=== PATIENT | male | born 1965 | race Caucasian/White ===

== ENCOUNTER 2022-09-12 17:56 | Inpatient (IN) ==
--- NOTE | 2022-09-12 18:06 | DR.ABDMALE ---
HPI <Naveed Costello - Last Filed: 09/12/22 18:31> Time seen Time Seen by Provider: 09/12/22 18:04 Complaint Chief Complaint Doctors Comments: Abdominal pain, constipation 2 days COVID-19 Coronavirus risk:travel/contact w/high risk person: No Has patient experienced Coronavirus symptoms: No Reviewed Nurses Notes Review: Yes Mode of arrival Mode of Arrival: Ambulatory Timing Came on: Gradually Duration Duration: Intermittent Severity Severity: Moderate <Kerry Johnson - Last Filed: 09/12/22 21:38> HPI comment HPI Comment: 57 y/o with hx perforated pud for which he's had surgery comes in with abd pain and constipation x almost a week; diffuse and worsening; poor appetite with decreased po intake; sob with exertion; no cough, fever, chills, n/v/d ROS <Naveed Costello - Last Filed: 09/12/22 18:31> Review of Systems Constitutional: No Symptoms Reported Eyes: No Symptoms Reported ENTM: No Symptoms Reported Respiratoy: No Symptoms Reported Cardiovascular: No Symptoms Reported Gastrointestinal/Abdominal: See HPI, Abdominal Pain and Constipation Genitourinary: No Symptoms Reported Neurological: No Symptoms Reported Musculoskeletal: No Symptoms Reported Integumentary: No Symptoms Reported Hematologic/Lymphatic: No Symptoms Reported Endocrine: No Symptoms Reported Psychiatric: No Symptoms Reported All Other Systems: Reviewed and Negative <Kerry Johnson - Last Filed: 09/12/22 21:38> Review of Systems Respiratoy: See HPI and Short of Breath PE <Naveed Costello - Last Filed: 09/12/22 18:31> Vital Signs Vital Signs: Temp Pulse Resp BP Pulse Ox 09/12/22 21:15 108 H 16 100 09/12/22 21:00 109 H 21 100 09/12/22 20:45 115 H 23 09/12/22 20:30 109 H 19 100 09/12/22 20:15 109 H 20 98 09/12/22 20:11 109 H 09/12/22 19:45 113 H 21 99 09/12/22 19:45 131/92 09/12/22 19:30 110 H 19 99 09/12/22 19:30 131/95 09/12/22 19:29 110 H 20 99 09/12/22 19:15 112 H 21 99 09/12/22 19:15 125/88 09/12/22 19:00 111 H 20 09/12/22 19:00 125/90 09/12/22 18:46 111 H 22 09/12/22 18:46 128/92 09/12/22 18:45 110 H 21 09/12/22 18:30 111 H 25 H 09/12/22 18:30 134/87 09/12/22 18:15 115 H 27 H 09/12/22 18:13 113 H 26 H 90 L 09/12/22 18:07 98.9 F 125 H 18 132/95 98 General Limitations: No Limitations General Appearance: Alert and In No Apparent Distress Head Head Exam: Normal Inspection Eyes Eye exam: Normal Appearance ENT ENT Exam: Normal Exam Neck Neck Exam: Normal Inspection Chest Chest Inspection: Normal Inspection Respiratory Respiratory Exam: Normal Lung Sounds Bilat Cardiovascular Cardiovascular Exam: Regular Rate and Normal Rhythm Abdominal Exam Abdominal Exam: Normal Inspection and Normal Bowel Sounds Rectal Rectal Exam: Deferred Back Back Exam: Normal Inspection Extremeties Extremities Exam: Normal Inspection Exam: Male: Deferred Neurologic Neurological Exam: Alert and Oriented X3 Psychiatric Psychiatric Exam: Normal Affect and Normal Mood Skin Skin Exam: Warm, Dry, Intact and Normal Color <Kerry Johnson - Last Filed: 09/12/22 21:38> Vital Signs Vital Signs: Temp Pulse Resp BP Pulse Ox 09/12/22 21:15 108 H 16 100 09/12/22 21:00 109 H 21 100 09/12/22 20:45 115 H 23 09/12/22 20:30 109 H 19 100 09/12/22 20:15 109 H 20 98 09/12/22 20:11 109 H 09/12/22 19:45 113 H 21 99 09/12/22 19:45 131/92 09/12/22 19:30 110 H 19 99 09/12/22 19:30 131/95 09/12/22 19:29 110 H 20 99 09/12/22 19:15 112 H 21 99 09/12/22 19:15 125/88 09/12/22 19:00 111 H 20 09/12/22 19:00 125/90 09/12/22 18:46 111 H 22 09/12/22 18:46 128/92 09/12/22 18:45 110 H 21 09/12/22 18:30 111 H 25 H 03/28/23 18:30 134/87 09/12/22 18:15 115 H 27 H 09/12/22 18:13 113 H 26 H 90 L 09/12/22 18:07 98.9 F 125 H 18 132/95 98 General General Appearance: In No Apparent Distress (lying very still with eyes closed, speaks when spoken to) Abdominal Exam Abdominal Tenderness: Diffuse and Severe Skin Skin Exam: Intact and Mottled (rt side/flank) <Kerry Johnson - Last Filed: 09/12/22 21:38> Reevaluation 1st: Unchanged (pale, lethargic, very tender abd) 2nd: Unchanged Consultation Call Returned: 21:07 (Dr Chavarria here to place central line; advised of ct results; accepts admission.) Critical Care Notes Total Time (mins): 30 Critical Diagnosis: pneumoperitoneum, ascites, dehydration, arf, sepsis, hyponatremia, rt pleural effusion Critical Interventions: ivf, abx, central line, surgical consult discussion of dx and need for admission/surgical exploration with radiologist, pt and surgeon ROR <Naveed Costello - Last Filed: 09/12/22 18:31> Labs Reviewed Result Diagrams: 09/12/22 18:20 09/12/22 18:20 Laboratory: WBC 17.2 X10^3/uL (3.6-10.0) H 09/12/22 18:20 RBC 6.29 X10^6/uL (4.7-6.0) H 09/12/22 18:20 Hgb 20.4 g/dL (13.5-18.0) H* 09/12/22 18:20 Hct 61.2 % (42.0-54.0) H* 09/12/22 18:20 MCV 97.2 fL (80.0-100.0) 09/12/22 18:20 MCH 32.4 pg (27.0-34.0) 09/12/22 18:20 MCHC 33.3 g/dL (33.0-35.0) 09/12/22 18:20 RDW 13.8 % (11.6-16.5) 09/12/22 18:20 Plt Count 248 X10^3/uL (150.0-450.0) 09/12/22 18:20 MPV 8.5 fL (7.4-11.0) 09/12/22 18:20 Neut % (Auto) 89.2 % (42.0-75.0) H 09/12/22 18:20 Lymph % (Auto) 6.0 % (21.0-51.0) L 09/12/22 18:20 [place] % (Auto) 4.6 % (0.0-13.0) 09/12/22 18:20 Eos % (Auto) 0.0 % (0.9-2.9) L 09/12/22 18:20 Baso % (Auto) 0.2 % (0.2-1.0) 09/12/22 18:20 Neut # (Auto) 15.3 x10^3/uL (2.2-4.8) H 09/12/22 18:20 Lymph # (Auto) 1.0 X10^3/uL (1.3-2.9) L 09/12/22 18:20 [place] # (Auto) 0.8 x10^3/uL (0.3-0.8) 09/12/22 18:20 Eos # (Auto) 0.0 x10^3/uL (0.0-0.2) 09/12/22 18:20 Baso # (Auto) 0.0 X10^3/uL (0.0-0.1) 09/12/22 18:20 Absolute Nucleated RBC 0.1 /100WBC 09/12/22 18:20 Sodium 128 mmol/L (136-145) L 09/12/22 18:20 Corrected Sodium TNP 09/12/22 18:20 Potassium 5.1 mmol/L (3.5-5.1) 09/12/22 18:20 Chloride 93 mmol/L (98-107) L 09/12/22 18:20 Carbon Dioxide 17.2 mmol/L (21-32) L 09/12/22 18:20 BUN 47 mg/dL (7-18) H 09/12/22 18:20 Creatinine 4.19 mg/dL (0.70-1.30) H 09/12/22 18:20 Est GFR (MDRD) Af Amer 19 (>60) L 09/12/22 18:20 Est GFR (MDRD) Non-Af 16 (>60) L 09/12/22 18:20 Glucose 110 mg/dL (65-99) H 09/12/22 18:20 Lactic Acid 8.8 mmol/L (0.4-2.0) H 09/12/22 18:20 Calcium 9.8 mg/dL (8.5-10.1) 09/12/22 18:20 Corrected Calcium TNP 09/12/22 18:20 Total Bilirubin 0.90 mg/dL (0.2-1.0) 09/12/22 18:20 AST 92 Units/L (15-37) H 09/12/22 18:20 ALT 146 Units/L (12-78) H 09/12/22 18:20 Alkaline Phosphatase 91 Units/L (46-116) 09/12/22 18:20 Total Protein 8.1 g/dL (6.4-8.2) 09/12/22 18:20 Albumin 3.8 g/dL (3.4-5.0) 09/12/22 18:20 Globulin 4.3 g/dL (2.5-4.5) 09/12/22 18:20 Albumin/Globulin Ratio 0.9 Ratio (1.1-2.1) L 09/12/22 18:20 Lipase 95 Units/L (73-393) 09/12/22 18:20 <Kerry Johnson - Last Filed: 09/12/22 21:38> Labs Reviewed Laboratory Results Reviewed?: Yes Laboratory: WBC 17.2 X10^3/uL (3.6-10.0) H 09/12/22 18:20 RBC 6.29 X10^6/uL (4.7-6.0) H 09/12/22 18:20 Hgb 20.4 g/dL (13.5-18.0) H* 09/12/22 18:20 Hct 61.2 % (42.0-54.0) H* 09/12/22 18:20 MCV 97.2 fL (80.0-100.0) 09/12/22 18:20 MCH 32.4 pg (27.0-34.0) 09/12/22 18:20 MCHC 33.3 g/dL (33.0-35.0) 09/12/22 18:20 RDW 13.8 % (11.6-16.5) 09/12/22 18:20 Plt Count 248 X10^3/uL (150.0-450.0) 09/12/22 18:20 MPV 8.5 fL (7.4-11.0) 09/12/22 18:20 Neut % (Auto) 89.2 % (42.0-75.0) H 09/12/22 18:20 Lymph % (Auto) 6.0 % (21.0-51.0) L 09/12/22 18:20 [place] % (Auto) 4.6 % (0.0-13.0) 09/12/22 18:20 Eos % (Auto) 0.0 % (0.9-2.9) L 09/12/22 18:20 Baso % (Auto) 0.2 % (0.2-1.0) 09/12/22 18:20 Neut # (Auto) 15.3 x10^3/uL (2.2-4.8) H 09/12/22 18:20 Lymph # (Auto) 1.0 X10^3/uL (1.3-2.9) L 09/12/22 18:20 [place] # (Auto) 0.8 x10^3/uL (0.3-0.8) 09/12/22 18:20 Eos # (Auto) 0.0 x10^3/uL (0.0-0.2) 09/12/22 18:20 Baso # (Auto) 0.0 X10^3/uL (0.0-0.1) 09/12/22 18:20 Absolute Nucleated RBC 0.1 /100WBC 09/12/22 18:20 Sodium 128 mmol/L (136-145) L 09/12/22 18:20 Corrected Sodium TNP 09/12/22 18:20 Potassium 5.1 mmol/L (3.5-5.1) 09/12/22 18:20 Chloride 93 mmol/L (98-107) L 09/12/22 18:20 Carbon Dioxide 17.2 mmol/L (21-32) L 09/12/22 18:20 BUN 47 mg/dL (7-18) H 09/12/22 18:20 Creatinine 4.19 mg/dL (0.70-1.30) H 09/12/22 18:20 Est GFR (MDRD) Af Amer 19 (>60) L 09/12/22 18:20 Est GFR (MDRD) Non-Af 16 (>60) L 09/12/22 18:20 Glucose 110 mg/dL (65-99) H 09/12/22 18:20 Lactic Acid 8.8 mmol/L (0.4-2.0) H 09/12/22 18:20 Calcium 9.8 mg/dL (8.5-10.1) 09/12/22 18:20 Corrected Calcium TNP 09/12/22 18:20 Total Bilirubin 0.90 mg/dL (0.2-1.0) 09/12/22 18:20 AST 92 Units/L (15-37) H 09/12/22 18:20 ALT 146 Units/L (12-78) H 09/12/22 18:20 Alkaline Phosphatase 91 Units/L (46-116) 09/12/22 18:20 Total Protein 8.1 g/dL (6.4-8.2) 09/12/22 18:20 Albumin 3.8 g/dL (3.4-5.0) 09/12/22 18:20 Globulin 4.3 g/dL (2.5-4.5) 09/12/22 18:20 Albumin/Globulin Ratio 0.9 Ratio (1.1-2.1) L 09/12/22 18:20 Lipase 95 Units/L (73-393) 09/12/22 18:20 Other Results Comments: left arm/upper half of forearm became swollen, tight presumably from antecubital iv; forearm dusky, cool to touch with 2+ ulnar/radial pulse; iv removed XRAY XRAY Interpreted by: Radiologist X-ray Results: kub: Intra-abdominal free air, best seen on subsequent CT. See separately dictated CT abdomen pelvis from the same day further describing the findings. ct abd/pelvis w/o: Significant pneumoperitoneum and ascites noted throughout the abdomen. This is concerning for a perforated viscus. Correlate clinically to exclude a perforated ulcer of possibly the duodenum, as the source for the pe rforation. A surgical consult is highly recommended. Distention of the stomach and multiple small bowel loops concerning for either a bowel obstruction versus a reactive ileus. However, the right hemicolon is not distended but rather there is mild gaseous distention of the transverse colon. Dr. Johnson was notified of the above findings at thetime of the interpretation of the exam at 8:52 p.m. on 09/12/2022. Small right pleural effusion. 2.2 mm nonobstructing left lower pole renal calculus. Opioid <Naveed Costello - Last Filed: 09/12/22 18:31> Opioid Risk Tool Total: 0 Total Score Risk Category: Low Risk Copyright: [facility] predicting aberrant behaviors <Kerry Johnson - Last Filed: 09/12/22 21:38> Opioid Risk Tool Total: 0 Total Score Risk Category: Low Risk Discharge Plan Diagnosis Discharge Problem: Pneumoperitoneum, Acute dehydration, Acute hyponatremia, Pleural effusion on right Acute renal failure (ARF) Qualifiers: Acute renal failure type: unspecified Qualified Code(s): N17.9 - Acute kidney failure, unspecified Sepsis Qualifiers: Sepsis type: sepsis due to unspecified organism Sepsis acute organ dysfunction status: with acute organ dysfunction Severe sepsis acute organ dysfunction type: acute renal failure Acute renal failure type: unspecified Severe sepsis shock status: without septic shock Qualified Code(s): A41.9 - Sepsis, unspecified organism Discharge Plan Patient Disposition: 09 ADMITTED INPATIENT Condition: Stable Prescriptions: No Action [facility] Concerns: Post Hospitalization: new medications and changes needed to prevent readmission or further decline. Pt educated and given instructions on all concerns. Plan of Treatment: Continue with present treatment and follow up plan. Pt is to keep follow up appointment as instructed and take medications as ordered. Follow ups/Referrals Follow ups/Referrals: [facility],None [Primary Care Provider] - 3 days
[2022-09-12 18:32] LABS: MEAN CORPUSCULAR VOLUME 97.2 fL (80.0-100.0)
[2022-09-12 18:36] LABS: BASOPHILS % (AUTO) 0.2 % (0.2-1.0); MEAN CORPUSCULAR HEMOGLOBIN 32.4 pg (27.0-34.0); MEAN CORPUSCULAR HGB CONC 33.3 g/dL (33.0-35.0); MEAN PLATELET VOLUME 8.5 fL (7.4-11.0); MONOCYTES # (AUTO) 0.8 x10^3/uL (0.3-0.8); MONOCYTES % (AUTO) 4.6 % (0.0-13.0); NEUTROPHILS # (AUTO) 15.3 x10^3/uL (2.2-4.8); NEUTROPHILS % (AUTO) 89.2 % (42.0-75.0); RED BLOOD COUNT 6.29 X10^6/uL (4.7-6.0); RED CELL DISTRIBUTION WIDTH 13.8 % (11.6-16.5); WHITE BLOOD COUNT 17.2 X10^3/uL (3.6-10.0)
[2022-09-12 18:38] LABS: HEMATOCRIT 61.2 % (42.0-54.0); HEMOGLOBIN 20.4 g/dL (13.5-18.0)
[2022-09-12 19:00] LABS: ALANINE AMINOTRANSFERASE 146 Units/L (12-78); ALBUMIN 3.8 g/dL (3.4-5.0); ALKALINE PHOSPHATASE 91 Units/L (46-116); ASPARTATE AMINO TRANSFERASE 92 Units/L (15-37); BLOOD UREA NITROGEN 47 mg/dL (7-18); CALCIUM 9.8 mg/dL (8.5-10.1); CARBON DIOXIDE 17.2 mmol/L (21-32); CHLORIDE 93 mmol/L (98-107); CREATININE 4.19 mg/dL (0.70-1.30); SODIUM 128 mmol/L (136-145); TOTAL PROTEIN 8.1 g/dL (6.4-8.2); eGFR NON BLACK RACES 16 (>60)
[2022-09-12 19:03] LABS: LACTIC ACID 8.8 mmol/L (0.4-2.0)
[2022-09-12] MEDS ORDERED: NS 1,000 ML IV 1,000 ML ONE ×3 (19:08→22:20)
[2022-09-12] MEDS ORDERED: NS 1,000 ML IV 1,000 ML IV ONE ×3 (19:11→21:22)
--- NOTE | 2022-09-12 19:27 | EKG ---
Test Reason : Weakness Blood Pressure : */* mmHG Vent. Rate : 112 BPM Atrial Rate : 112 BPM P-R Int : 134 ms QRS Dur : 88 ms QT Int : 300 ms P-R-T Axes : 83 85 76 degrees QTc Int : 409 ms Sinus tachycardia Otherwise normal ECG No previous ECGs available Confirmed by Salazar Cooper ([id number]) on 09/13/2022 10:34:53 AM Referred By: Confirmed By: Salazar Cooper
[2022-09-12] MEDS ORDERED: ZOSYN VIAL 3.375 GRAMS 3.375 G in NS 100 ML IV 100 ML IV ONE (20:16)
--- NOTE | 2022-09-12 20:35 | RAD ---
Abdominal radiograph single viewIndication: 1 week of progressively worsening generalized abdominal pain.COMPARISONNo recent prior. CT from the same day reviewedFINDINGSFree air seen on the concurrent CT from later the same day is difficult to visualized radiographically, with mild gas over the upper abdomen noted. Dilatation of a loop of colon in the right abdomen suspected, without high-grade obstruction identified.IMPRESSIONIntra-abdominal free air, best seen on subsequent CT. See separately dictated CT abdomen pelvis from the same day further describing the findings.Electronically signed by: RYLEE FAIRBANKS (Sep 12, 2022 20:33:49)
--- NOTE | 2022-09-12 21:01 | CT ---
HISTORYC/O 1 WEEK OF PROGRESSIVELY WORSENING GENERALIZED ABDOMINAL PAIN DESCRIBED CONSTANT. PT ALSO C/O CONSTIPATION WITH LAST SMALL BM YESTERDAY MORNINGSTUDYABDOMEN/PELVIS W/O CONCOMPARISONNone.TECHNIQUESerial axial images were obtained from the lung bases to the pubic symphysis without the administration of intravenous contrast. Soft tissue, lung windows and bone window images were interpreted. Dose reduction techniques were utilized.FINDINGSThe heart is not enlarged. The lung bases reveals a small right pleural effusion which is posteriorly layering.There is a large amount of free intraperitoneal air scattered throughout the abdomen. This is predominately seen in the perihepatic space and subjacent to the hemidiaphragms. There is also significant perihepatic ascites and fluid tracking within the paracolic gutters. The liver is normal in size and reveals no focal lesions. There is no intrahepatic biliary ductal dilatation or obvious common bile duct dilatation. The gallbladder is unremarkable. The gallbladder reveals no radiopaque gallstones. The spleen is unremarkable, revealing no focal lesions. The pancreas and adrenal glands are unremarkable.The aorta and inferior vena cava are unremarkable. No significant para-aortic or retroperitoneal lymphadenopathy is identified.The kidneys reveal a 2.2 mm left lower pole nonobstructing renal calculus. There is no hydronephrosis. There is no obstructive uropathy.Examination of the bowel, greater omentum and mesentery reveals diverticular distention of the stomach which is fluid-filled and dilated. Free intraperitoneal air is scattered within the ventral abdominal cavity. Ascites is seen within the abdomen and filling the pelvis. Some of the small bowel loops are also fluid-filled and distended. There is significant edema throughout the mesenteric and omental fat. The appendix is unremarkable with no evidence for acute appendicitis. Examination of the pelvis reveals no pathologic masses. The urinary bladder is unremarkable. There are pelvic phleboliths.IMPRESSIONSignificant pneumoperitoneum and ascites noted throughout the abdomen. This is concerning for a perforated viscus. Correlate clinically to exclude a perforated ulcer of possibly the duodenum, as the source for the perforation. A surgical consult is highly recommended.Distention of the stomach and multiple small bowel loops concerning for either a bowel obstruction versus a reactive ileus. However, the right hemicolon is not distended but rather there is mild gaseous distention of the transverse colon. Dr. Johnson was notified of the above findings at the time of the interpretation of the exam at 8:52 p.m. on 09/12/2022.Small right pleural effusion.2.2 mm nonobstructing left lower pole renal calculus.Electronically signed by: India Gill (Sep 12, 2022 21:00:07)
[2022-09-12] MEDS ORDERED: ZOSYN VIAL 3.375 GRAMS IV ONE (21:07)
[2022-09-12] MEDS ORDERED: NS 100 ML IV 100 ML ONE (21:07)
[2022-09-12] MEDS ORDERED: ZOFRAN INJ 4 MG VIAL IVP PRN (21:33)
[2022-09-12] MEDS ORDERED: MORPHINE SULFATE INJ 2 MG INJ IVP PRN (21:37)
[2022-09-12 21:52] LABS: BILIRUBIN,URINE NEGATIVE (NEGATIVE); BLOOD/HEMOGLOBIN,URINE 4+ (NEGATIVE); GLUCOSE, URINE NEGATIVE (NEGATIVE); KETONES,URINE 1+ (NEGATIVE); LEUKOCYTE ESTERASE ,URINE 1+ (NEGATIVE); NITRITES,URINE NEGATIVE (NEGATIVE); PROTEIN,URINE 3+ (NEGATIVE); UROBILINOGEN,URINE 1+ (NORMAL)
[2022-09-12 22:00] LABS: APPEARANCE,URINE SLIGHTLY HAZY (CLEAR); COLOR,URINE YELLOW (YELLOW)
[2022-09-12] MEDS ORDERED: CONSULT PHARMACY - ANTIBIOTIC XX SCH (22:00)
[2022-09-12 22:01] LABS: BACTERIA,URINE 1+ /HPF (NEGATIVE); RBC,URINE 20-30 /HPF (0-3); SPERM,URINE FEW /HPF (NEGATIVE); SQUAMOUS EPITHELIAL CELL,UR RARE /HPF (NEGATIVE)
[2022-09-12] MEDS ORDERED: ZOSYN VIAL 2.25 GRAMS 2.25 G in NS 100 ML IV 100 ML IV SCH (22:01)
--- NOTE | 2022-09-12 22:16 | RAD ---
HISTORYCENTRAL LINE PLACEMENTSTUDYCHEST, 1 VIEWCOMPARISONNone.TECHNIQUEA single frontal view of the chest was obtained.FINDINGSThere is a left central line with its tip overlying the superior vena cava. There are multiple EKG leads and wires seen overlying the patient. The heart is normal in size. There is no focal infiltrate. There is no effusion. There is no pneumothorax. The osseous structures are intact.There is extensive free intraperitoneal air seen subjacent to the right hemidiaphragm.IMPRESSIONNo focal infiltrate or effusion.Left central line in situ.Pneumoperitoneum.Electronically signed by: India Gill (Sep 12, 2022 22:15:20)
[2022-09-12] MEDS: ZOSYN VIAL 2.25 GRAMS 2.25 G in NS 100 ML IV 100 ML IV SCH (22:17)
[2022-09-12] MEDS ORDERED: LR 1,000 ML IV 1,000 ML IV ONE (22:43)
[2022-09-12] MEDS: DILAUDID INJ IVP PRN (23:02)
[2022-09-12] MEDS: LR 1,000 ML IV 1,000 ML IV SCH (23:54)
--- NOTE | 2022-09-13 00:01 | DR.H&P ---
H&P History & Physical for Day of: H&P Date: 09/12/22 Chief Complaint Chief Complaint: 3 day history of abdominal pain in this incarcerated patient. Allergies Allergies Allergy/AdvReac Type Severity Reaction Status Date / Time No Known Allergies Allergy Verified 09/12/22 18:12 History of Present Illness History of Present Illness: 57 yo male , currently incarcerated with 3 day history of acute abdominal pain. History of surgery over 5 years ago for perforated bowel but no details of the exact location known by the patient. Patient markedly dehydrated . CT shows free air and possible perforated duodenal ulcer. Past Surgical History Surgical History: Abdominal Surgery (see HPI) and Ortho Surgery Social History Does patient currently use any type of tobacco product: No Have you used tobacco products in the last 12 months: No Type of Tobacco Use: None Does any household member use tobacco: No Alcohol Use: None Medications Home Medications: No Known Allergies Allergy (Verified 09/12/22 18:12) CONTINUE taking the following medications NK 09/12/22 [History] Labs Result Diagrams: 09/12/22 18:20 09/12/22 18:20 Labs: Laboratory WBC 17.2 X10^3/uL (3.6-10.0) H 09/12/22 18:20 RBC 6.29 X10^6/uL (4.7-6.0) H 09/12/22 18:20 Hgb 20.4 g/dL (13.5-18.0) H* 09/12/22 18:20 Hct 61.2 % (42.0-54.0) H* 09/12/22 18:20 MCV 97.2 fL (80.0-100.0) 09/12/22 18:20 MCH 32.4 pg (27.0-34.0) 09/12/22 18:20 MCHC 33.3 g/dL (33.0-35.0) 09/12/22 18:20 RDW 13.8 % (11.6-16.5) 09/12/22 18:20 Plt Count 248 X10^3/uL (150.0-450.0) 09/12/22 18:20 MPV 8.5 fL (7.4-11.0) 09/12/22 18:20 Neut % (Auto) 89.2 % (42.0-75.0) H 09/12/22 18:20 Lymph % (Auto) 6.0 % (21.0-51.0) L 09/12/22 18:20 [place] % (Auto) 4.6 % (0.0-13.0) 09/12/22 18:20 Eos % (Auto) 0.0 % (0.9-2.9) L 09/12/22 18:20 Baso % (Auto) 0.2 % (0.2-1.0) 09/12/22 18:20 Neut # (Auto) 15.3 x10^3/uL (2.2-4.8) H 09/12/22 18:20 Lymph # (Auto) 1.0 X10^3/uL (1.3-2.9) L 09/12/22 18:20 [place] # (Auto) 0.8 x10^3/uL (0.3-0.8) 09/12/22 18:20 Eos # (Auto) 0.0 x10^3/uL (0.0-0.2) 09/12/22 18:20 Baso # (Auto) 0.0 X10^3/uL (0.0-0.1) 09/12/22 18:20 Absolute Nucleated RBC 0.1 /100WBC 09/12/22 18:20 Sodium 128 mmol/L (136-145) L 09/12/22 18:20 Corrected Sodium TNP 09/12/22 18:20 Potassium 5.1 mmol/L (3.5-5.1) 09/12/22 18:20 Chloride 93 mmol/L (98-107) L 09/12/22 18:20 Carbon Dioxide 17.2 mmol/L (21-32) L 09/12/22 18:20 BUN 47 mg/dL (7-18) H 09/12/22 18:20 Creatinine 4.19 mg/dL (0.70-1.30) H 09/12/22 18:20 Est GFR (MDRD) Af Amer 19 (>60) L 09/12/22 18:20 Est GFR (MDRD) Non-Af 16 (>60) L 09/12/22 18:20 Glucose 110 mg/dL (65-99) H 09/12/22 18:20 Lactic Acid 8.8 mmol/L (0.4-2.0) H 09/12/22 18:20 Calcium 9.8 mg/dL (8.5-10.1) 09/12/22 18:20 Corrected Calcium TNP 09/12/22 18:20 Total Bilirubin 0.90 mg/dL (0.2-1.0) 09/12/22 18:20 AST 92 Units/L (15-37) H 09/12/22 18:20 ALT 146 Units/L (12-78) H 09/12/22 18:20 Alkaline Phosphatase 91 Units/L (46-116) 09/12/22 18:20 Total Protein 8.1 g/dL (6.4-8.2) 09/12/22 18:20 Albumin 3.8 g/dL (3.4-5.0) 09/12/22 18:20 Globulin 4.3 g/dL (2.5-4.5) 09/12/22 18:20 Albumin/Globulin Ratio 0.9 Ratio (1.1-2.1) L 09/12/22 18:20 Lipase 95 Units/L (73-393) 09/12/22 18:20 Specimen Type Catherized urine 09/12/22 21:43 Urine Color Yellow (YELLOW) 09/12/22 21:43 Urine Appearance Slightly hazy (CLEAR) 09/12/22 21:43 Urine pH 8.0 (5.0 - 8.0) 09/12/22 21:43 Ur Specific [place] 1.010 (1.000-1.030) 09/12/22 21:43 Urine Protein 3+ (NEGATIVE) 09/12/22 21:43 Urine Glucose (UA) Negative (NEGATIVE) 09/12/22 21:43 Urine Ketones 1+ (NEGATIVE) 09/12/22 21:43 Urine Blood 4+ (NEGATIVE) 09/12/22 21:43 Urine Nitrite Negative (NEGATIVE) 09/12/22 21:43 Urine Bilirubin Negative (NEGATIVE) 09/12/22 21:43 Urine Urobilinogen 1+ (NORMAL) 09/12/22 21:43 Ur Leukocyte Esterase 1+ (NEGATIVE) 09/12/22 21:43 Urine RBC 20-30 /HPF (0-3) A 09/12/22 21:43 Urine WBC 5-10 /HPF (0-5) A 09/12/22 21:43 Ur Squamous Epith Cells Rare /HPF (NEGATIVE) 09/12/22 21:43 Urine Bacteria 1+ /HPF (NEGATIVE) 09/12/22 21:43 Urine Sperm Few /HPF (NEGATIVE) 09/12/22 21:43 Ur Culture Indicated? No/not indicated 09/12/22 21:43 Urine Opiates Screen Negative (NEG=<300) 09/12/22 21:43 Urine Methadone Screen Negative (NEG=<300) 09/12/22 21:43 Ur Barbiturates Screen Negative (NEG=<200) 09/12/22 21:43 Ur Phencyclidine Scrn Negative (NEG=<25) 09/12/22 21:43 Ur Amphetamines Screen Positive (NEG=<1000) 09/12/22 21:43 U Benzodiazepines Scrn Negative (NEG=<200) 09/12/22 21:43 Urine Cocaine Screen Negative (NEG=<300) 09/12/22 21:43 U Marijuana (THC) Screen Negative (NEG=<50) 09/12/22 21:43 Review of Systems Constitutional: See HPI Eyes: No Symptoms Reported ENT: No Symptoms Reported Respiratory: No Symptoms Reported Cardiovascular: Other (tachycardic) Gastrointestinal: See HPI Genitourinary: No Symptoms Reported Musculoskeletal: No Symptoms Reported Skin: No Symptoms Reported Neurological: No Symptoms Reported Physical Exam Vital Signs: Temperature 98.9 F Pulse Rate 100 Respiratory Rate 20 Blood Pressure 154/96 O2 Sat by Pulse Oximetry 99 Oriented: Normal, Time, Person and Place Eyes: Normal Ear: Normal Nose: Normal Throat: Normal Respiratory: Clear Throughout Cardiovascular: Tachycardia : Normal Auscultation: Bowel Sounds: Absent Palpation: Other (evidence acute abdomen) Tenderness: Diffuse Skin: Normal Musculoskeletal: Normal Psychiatric: Normal Mood Description: Anxious Affect: Quiet Speech Pattern: Clear Assessment/Plan (1) Pneumoperitoneum: Status: Acute Plan: Probable perforated duodenal ulcer of several days duration and marked dehydration. Patient will need aggressive rehydration, Nieves catheter and NG tube. Will need IV antibiotics. All this is in preparation for laparoscopy or laparotomy and repair of bowel perforation possible bowel resection. Patient is critically ill. (2) Acute dehydration: Status: Acute Plan: Aggressive rehydration. Nieves catheter.
[2022-09-13] MEDS: LR 1,000 ML IV 1,000 ML IV SCH ×5 (01:00→22:13)
[2022-09-13 04:55] LABS: BASOPHILS % (AUTO) 0 % (0.2-1.0); HEMATOCRIT 48.6 % (42.0-54.0); LYMPHOCYTES % (AUTO) 5.9 % (21.0-51.0); MEAN CORPUSCULAR HGB CONC 34.3 g/dL (33.0-35.0); MEAN CORPUSCULAR VOLUME 93.5 fL (80.0-100.0); MEAN PLATELET VOLUME 9.5 fL (7.4-11.0); MONOCYTES # (AUTO) 0.6 x10^3/uL (0.3-0.8); MONOCYTES % (AUTO) 3.8 % (0.0-13.0); NEUTROPHILS # (AUTO) 15.1 x10^3/uL (2.2-4.8); NEUTROPHILS % (AUTO) 90.3 % (42.0-75.0); RED CELL DISTRIBUTION WIDTH 13.5 % (11.6-16.5); WHITE BLOOD COUNT 16.7 X10^3/uL (3.6-10.0)
[2022-09-13 05:22] LABS: HEMOGLOBIN 16.7 g/dL (13.5-18.0)
[2022-09-13 05:23] LABS: BAND NEUTROPHILS % 10 % (0-10); METAMYELOCYTES % 4; MYELOCYTES % 1; PLATELET MORPHOLOGY COMMENT NORMAL (NORMAL)
[2022-09-13 05:58] LABS: ALANINE AMINOTRANSFERASE 122 Units/L (12-78); ALBUMIN 2.5 g/dL (3.4-5.0); ALKALINE PHOSPHATASE 60 Units/L (46-116); ASPARTATE AMINO TRANSFERASE 86 Units/L (15-37); BLOOD UREA NITROGEN 52 mg/dL (7-18); CALCIUM 7.7 mg/dL (8.5-10.1); CARBON DIOXIDE 19.7 mmol/L (21-32); CHLORIDE 100 mmol/L (98-107); COR CA(FOR HYPOALB) 8.9 mg/dL (8.5-10.1); SODIUM 129 mmol/L (136-145); TOTAL PROTEIN 5.8 g/dL (6.4-8.2); eGFR NON BLACK RACES 26 (>60)
[2022-09-13] MEDS: ZOSYN VIAL 3.375 GRAMS 3.375 G in NS 100 ML IV 100 ML IV SCH ×3 (08:13→22:00)
[2022-09-13] MEDS: PROTONIX INJ 40 MG VIAL IVP SCH ×2 (08:13→20:24)
[2022-09-13] MEDS ORDERED: ZEMURON 100 MG VIAL ONE (14:01)
[2022-09-13] MEDS ORDERED: BRIDION ONE (14:01)
[2022-09-13] MEDS ORDERED: VERSED ONE (14:01)
[2022-09-13] MEDS ORDERED: DIPRIVAN VIAL 20 ML ONE (14:01)
[2022-09-13] MEDS ORDERED: NS 1,000 ML IV 1,000 ML ONE ×2 (14:02→17:22)
[2022-09-13] MEDS ORDERED: FENTANYL VIAL INJ 100 mcg ONE ×3 (14:02→15:32)
[2022-09-13] MEDS ORDERED: PEPCID 20 MG VIAL ONE (14:03)
[2022-09-13] MEDS ORDERED: ZOFRAN INJ 4 MG VIAL ONE (14:03)
[2022-09-13] MEDS ORDERED: ULTANE GAS IN ONE (14:45)
[2022-09-13] MEDS ORDERED: NEO-SYNEPHRINE INJ ONE (15:03)
[2022-09-13] MEDS ORDERED: MARCAINE/EPINEPHRINE ONE (15:06)
[2022-09-13] MEDS ORDERED: DILAUDID INJ ONE (15:35)
[2022-09-13] MEDS ORDERED: LR 1,000 ML IV 1,000 ML IV ONE (16:44)
[2022-09-13] MEDS ORDERED: BARHEMSYS INJ IVP PRN (17:15)
[2022-09-13] MEDS ORDERED: REGLAN INJ 10 MG VIAL IVP PRN (17:15)
[2022-09-13] MEDS ORDERED: DILAUDID INJ IVP PRN (17:15)
[2022-09-13] MEDS ORDERED: ZOFRAN INJ 4 MG VIAL IVP PRN (17:15)
[2022-09-13] MEDS ORDERED: BENADRYL INJ 50 MG VIAL IVP PRN (17:15)
--- NOTE | 2022-09-13 17:16 | OR.IMMED ---
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 Description of Procedure: see operative summary Surgeon/Chief Contract Officer: Deon Findings: as above, plus significant contaminated fluid throughout the abdomen Specimens Removed: antrum and first portion of duodenum in contunuity Estimated Blood Loss: 250 cc Drains: [place] Complications: none Progress Notes: Return to the ICU for continued aggressive fluid hydration, IV antibiotics and monitoring of drains Final Diagnosis: as above
[2022-09-14] MEDS: DILAUDID INJ IVP PRN ×2 (00:56→00:57)
[2022-09-14 05:00] LABS: BASOPHILS # (AUTO) 0.2 X10^3/uL (0.0-0.1); BASOPHILS % (AUTO) 2.2 % (0.2-1.0); EOSINOPHILS % (AUTO) 0.4 % (0.9-2.9); HEMATOCRIT 39.8 % (42.0-54.0); LYMPHOCYTES # (AUTO) 0.4 X10^3/uL (1.3-2.9); LYMPHOCYTES % (AUTO) 3.8 % (21.0-51.0); MEAN CORPUSCULAR HEMOGLOBIN 32.1 pg (27.0-34.0); MEAN CORPUSCULAR VOLUME 94.5 fL (80.0-100.0); MEAN PLATELET VOLUME 8.9 fL (7.4-11.0); MONOCYTES # (AUTO) 0.6 x10^3/uL (0.3-0.8); MONOCYTES % (AUTO) 5.4 % (0.0-13.0); NEUTROPHILS # (AUTO) 9.7 x10^3/uL (2.2-4.8); NEUTROPHILS % (AUTO) 88.2 % (42.0-75.0); RED BLOOD COUNT 4.21 X10^6/uL (4.7-6.0); RED CELL DISTRIBUTION WIDTH 13.9 % (11.6-16.5)
[2022-09-14] MEDS: LR 1,000 ML IV 1,000 ML IV SCH ×3 (05:01→21:19)
[2022-09-14] MEDS: ZOSYN VIAL 3.375 GRAMS 3.375 G in NS 100 ML IV 100 ML IV SCH ×3 (05:02→21:02)
[2022-09-14 05:08] LABS: ALANINE AMINOTRANSFERASE 105 Units/L (12-78); ALBUMIN 1.7 g/dL (3.4-5.0); ALKALINE PHOSPHATASE 48 Units/L (46-116); ASPARTATE AMINO TRANSFERASE 81 Units/L (15-37); BLOOD UREA NITROGEN 59 mg/dL (7-18); CALCIUM 7.2 mg/dL (8.5-10.1); CARBON DIOXIDE 24.9 mmol/L (21-32); CHLORIDE 105 mmol/L (98-107); CREATININE 1.77 mg/dL (0.70-1.30); SODIUM 135 mmol/L (136-145); TOTAL PROTEIN 4.6 g/dL (6.4-8.2); eGFR NON BLACK RACES 42 (>60)
[2022-09-14 05:09] LABS: LACTIC ACID 2.7 mmol/L (0.4-2.0)
[2022-09-14 05:52] LABS: BAND NEUTROPHILS % 12 % (0-10); HEMOGLOBIN 13.5 g/dL (13.5-18.0); METAMYELOCYTES % 2; PLATELET MORPHOLOGY COMMENT NORMAL (NORMAL)
[2022-09-14 05:53] LABS: BURR CELLS PRESENT
[2022-09-14] MEDS: PROTONIX INJ 40 MG VIAL IVP SCH ×2 (08:02→20:06)
--- NOTE | 2022-09-14 23:20 | NOTE.SOAP ---
Soap Note Note for Day of Date of Exam: 09/14/22 Subjective Data Subjective Data: POD # 1 after antrectomy and Biltoth II reconstruction. Patient is improving, extubated and breathing well. Urine output is imporoving . Drainage per 2 JPs is serosangunous . Objective Data Temperature: 98.2 F Pulse Rate: 86 Respiratory Rate: 12 Blood Pressure: 132/76 O2 Sat by Pulse Oximetry: 100 Objective Data: NG in place.No drainage from mid-line wound . Hgb=13.5, Cr=1.77. WBC=11.0 Assessment Assessment: S/p antrectomy and BII reconstruction. Doing well. Hydration and renal system improving. Plan Plan: Continue Nieves, drains, NG tube , antibiotics, fluids and Protonix
[2022-09-15] MEDS: LR 1,000 ML IV 1,000 ML IV SCH ×6 (04:13→21:45)
[2022-09-15] MEDS: ZOSYN VIAL 3.375 GRAMS 3.375 G in NS 100 ML IV 100 ML IV SCH ×3 (05:48→21:16)
[2022-09-15] MEDS: PROTONIX INJ 40 MG VIAL IVP SCH ×2 (08:40→21:16)
[2022-09-15 08:42] LABS: BASOPHILS % (AUTO) 0.1 % (0.2-1.0); EOSINOPHILS % (AUTO) 0.1 % (0.9-2.9); HEMATOCRIT 30.6 % (42.0-54.0); HEMOGLOBIN 10.7 g/dL (13.5-18.0); LYMPHOCYTES # (AUTO) 0.8 X10^3/uL (1.3-2.9); LYMPHOCYTES % (AUTO) 8.4 % (21.0-51.0); MEAN CORPUSCULAR HEMOGLOBIN 32.6 pg (27.0-34.0); MEAN CORPUSCULAR HGB CONC 35.1 g/dL (33.0-35.0); MEAN PLATELET VOLUME 7.9 fL (7.4-11.0); MONOCYTES # (AUTO) 1.1 x10^3/uL (0.3-0.8); MONOCYTES % (AUTO) 10.8 % (0.0-13.0); NEUTROPHILS % (AUTO) 80.6 % (42.0-75.0); RED BLOOD COUNT 3.29 X10^6/uL (4.7-6.0); RED CELL DISTRIBUTION WIDTH 13.3 % (11.6-16.5); WHITE BLOOD COUNT 9.9 X10^3/uL (3.6-10.0)
[2022-09-15 08:50] LABS: ALANINE AMINOTRANSFERASE 70 Units/L (12-78); ALBUMIN 1.7 g/dL (3.4-5.0); ALKALINE PHOSPHATASE 40 Units/L (46-116); ASPARTATE AMINO TRANSFERASE 48 Units/L (15-37); BLOOD UREA NITROGEN 33 mg/dL (7-18); CALCIUM 7.4 mg/dL (8.5-10.1); CARBON DIOXIDE 30.3 mmol/L (21-32); CHLORIDE 104 mmol/L (98-107); COR CA(FOR HYPOALB) 9.2 mg/dL (8.5-10.1); CREATININE 0.98 mg/dL (0.70-1.30); SODIUM 138 mmol/L (136-145); TOTAL PROTEIN 4.6 g/dL (6.4-8.2); eGFR NON BLACK RACES > 60 (>60)
[2022-09-15] MEDS: DILAUDID INJ IVP PRN ×2 (08:54→21:26)
--- NOTE | 2022-09-16 00:08 | NOTE.SOAP ---
Soap Note Note for Day of Date of Exam: 09/15/22 Subjective Data Subjective Data: POD # 2 after antrectomy with Bilroth II reconstruction for recurrent perforated duodenal ulceer. Presented approximately 3 days after the perforation by symptoms, markedly volume contracted and septic . Doing much better . Good urine output . Labs satbilizing . See below Objective Data Temperature: 97.7 F Pulse Rate: 90 Respiratory Rate: 8 Blood Pressure: 142/67 O2 Sat by Pulse Oximetry: 96 Objective Data: A& O x 3 . Good urine output . Seroangunous fluid out of both RUQ STEPHEN drains . Good urine output. Wound is clean and dry. Hgb=10.7,BUN=33, Cr=0.98, WBC=9.9 Assessment Assessment: perforated duodenal ulcer, 2nd episode, S/P antrectomy and Bilroth II , Rehydration nearly complete, Abdomen soft. No flatus or BMs yet. Plan Plan: Continue IV antibiotics . Continue all drains and tubes. Await return of bowel function.
[2022-09-16] MEDS: LR 1,000 ML IV 1,000 ML IV SCH ×6 (03:35→21:46)
[2022-09-16] MEDS: ZOSYN VIAL 3.375 GRAMS 3.375 G in NS 100 ML IV 100 ML IV SCH ×3 (05:25→21:45)
[2022-09-16 05:43] LABS: BASOPHILS % (AUTO) 0.2 % (0.2-1.0); EOSINOPHILS # (AUTO) 0.1 x10^3/uL (0.0-0.2); EOSINOPHILS % (AUTO) 0.5 % (0.9-2.9); HEMATOCRIT 30.9 % (42.0-54.0); HEMOGLOBIN 10.7 g/dL (13.5-18.0); LYMPHOCYTES # (AUTO) 0.9 X10^3/uL (1.3-2.9); LYMPHOCYTES % (AUTO) 6.6 % (21.0-51.0); MEAN CORPUSCULAR HEMOGLOBIN 32.1 pg (27.0-34.0); MEAN CORPUSCULAR HGB CONC 34.6 g/dL (33.0-35.0); MEAN CORPUSCULAR VOLUME 92.7 fL (80.0-100.0); MEAN PLATELET VOLUME 8.2 fL (7.4-11.0); MONOCYTES # (AUTO) 1.8 x10^3/uL (0.3-0.8); MONOCYTES % (AUTO) 13.3 % (0.0-13.0); NEUTROPHILS # (AUTO) 10.5 x10^3/uL (2.2-4.8); NEUTROPHILS % (AUTO) 79.4 % (42.0-75.0); RED BLOOD COUNT 3.33 X10^6/uL (4.7-6.0); RED CELL DISTRIBUTION WIDTH 13.2 % (11.6-16.5); WHITE BLOOD COUNT 13.2 X10^3/uL (3.6-10.0)
[2022-09-16 05:54] LABS: ALANINE AMINOTRANSFERASE 54 Units/L (12-78); ALBUMIN 1.6 g/dL (3.4-5.0); ALKALINE PHOSPHATASE 45 Units/L (46-116); ASPARTATE AMINO TRANSFERASE 36 Units/L (15-37); BLOOD UREA NITROGEN 23 mg/dL (7-18); CALCIUM 7.5 mg/dL (8.5-10.1); CARBON DIOXIDE 29.7 mmol/L (21-32); CHLORIDE 105 mmol/L (98-107); COR CA(FOR HYPOALB) 9.4 mg/dL (8.5-10.1); CREATININE 0.77 mg/dL (0.70-1.30); SODIUM 139 mmol/L (136-145); TOTAL PROTEIN 4.5 g/dL (6.4-8.2); eGFR NON BLACK RACES > 60 (>60)
[2022-09-16 06:29] LABS: BAND NEUTROPHILS % 5 % (0-10); PLATELET MORPHOLOGY COMMENT NORMAL (NORMAL)
[2022-09-16] MEDS: PROTONIX INJ 40 MG VIAL IVP SCH ×2 (08:36→21:46)
[2022-09-16] MEDS: LOVENOX INJ 40 MG SYR SC SCH (09:31)
[2022-09-17 04:11] LABS: BASOPHILS % (AUTO) 0.2 % (0.2-1.0); EOSINOPHILS # (AUTO) 0.1 x10^3/uL (0.0-0.2); EOSINOPHILS % (AUTO) 0.3 % (0.9-2.9); HEMATOCRIT 31.6 % (42.0-54.0); MEAN CORPUSCULAR HEMOGLOBIN 31.8 pg (27.0-34.0); MEAN CORPUSCULAR HGB CONC 34.7 g/dL (33.0-35.0); MEAN CORPUSCULAR VOLUME 91.5 fL (80.0-100.0); MEAN PLATELET VOLUME 7.5 fL (7.4-11.0); MONOCYTES # (AUTO) 2.7 x10^3/uL (0.3-0.8); MONOCYTES % (AUTO) 16.4 % (0.0-13.0); NEUTROPHILS # (AUTO) 12.5 x10^3/uL (2.2-4.8); NEUTROPHILS % (AUTO) 77.1 % (42.0-75.0); RED BLOOD COUNT 3.45 X10^6/uL (4.7-6.0); RED CELL DISTRIBUTION WIDTH 12.9 % (11.6-16.5); WHITE BLOOD COUNT 16.2 X10^3/uL (3.6-10.0)
[2022-09-17 04:20] LABS: ALANINE AMINOTRANSFERASE 43 Units/L (12-78); ALBUMIN 1.5 g/dL (3.4-5.0); ALKALINE PHOSPHATASE 53 Units/L (46-116); ASPARTATE AMINO TRANSFERASE 29 Units/L (15-37); BLOOD UREA NITROGEN 19 mg/dL (7-18); CALCIUM 7.3 mg/dL (8.5-10.1); CARBON DIOXIDE 29.2 mmol/L (21-32); CHLORIDE 104 mmol/L (98-107); COR CA(FOR HYPOALB) 9.3 mg/dL (8.5-10.1); CREATININE 0.78 mg/dL (0.70-1.30); SODIUM 137 mmol/L (136-145); TOTAL PROTEIN 4.4 g/dL (6.4-8.2); eGFR NON BLACK RACES > 60 (>60)
[2022-09-17 04:38] LABS: BAND NEUTROPHILS % 4 % (0-10); PLATELET MORPHOLOGY COMMENT NORMAL (NORMAL)
[2022-09-17] MEDS: LR 1,000 ML IV 1,000 ML IV SCH ×3 (05:43→21:05)
[2022-09-17] MEDS: ZOSYN VIAL 3.375 GRAMS 3.375 G in NS 100 ML IV 100 ML IV SCH ×3 (06:11→21:05)
[2022-09-17] MEDS: PROTONIX INJ 40 MG VIAL IVP SCH ×2 (08:21→21:05)
[2022-09-17] MEDS: LOVENOX INJ 40 MG SYR SC SCH (08:22)
--- NOTE | 2022-09-17 09:22 | DR.PROGNOT ---
HOSPITAL PROGRESS NOTE Progress Note for Day of: Progress Note Date: 09/16/22 Chief Complaint Chief Complaint: c/o incisional pain . minimal drainage in STEPHEN . afebrile Past Medical Family Social History Past Med/Fam/Surg Hx: No changes since H&P Allergies: Allergies No Known Allergies Allergy (Verified 09/12/22 18:12) Vital Signs Vital Signs: Temperature 98.6 F Pulse Rate 93 Respiratory Rate 12 Blood Pressure 145/71 O2 Sat by Pulse Oximetry 99 Physical Exam Oriented: Normal, Time, Person and Place Eyes: Normal Ear: Normal Nose: Normal Throat: Normal Cardiovascular: Tachycardia : Normal GI:Auscultation: Decreased GI:Palpation: Other (evidence acute abdomen) GI: Tenderness: Diffuse Skin: Normal Musculoskeletal: Normal Psychiatric: Normal Mood Description: Calm Affect: Quiet Speech Pattern: Clear and Appropriate Laboratory and Diagnostics Result Diagrams: 09/17/22 04:00 09/17/22 04:00 Labs: 09/13/22 15:24 Abdomen Wound Gram Stain - Final 09/13/22 15:24 Abdomen Wound Culture - Final 09/12/22 20:28 Blood Blood Culture - Preliminary 09/12/22 18:20 Blood Blood Culture - Preliminary Laboratory WBC 16.2 X10^3/uL (3.6-10.0) H 09/17/22 04:00 RBC 3.45 X10^6/uL (4.7-6.0) L 09/17/22 04:00 Hgb 11.0 g/dL (13.5-18.0) L 09/17/22 04:00 Hct 31.6 % (42.0-54.0) L 09/17/22 04:00 MCV 91.5 fL (80.0-100.0) 09/17/22 04:00 MCH 31.8 pg (27.0-34.0) 09/17/22 04:00 MCHC 34.7 g/dL (33.0-35.0) 09/17/22 04:00 RDW 12.9 % (11.6-16.5) 09/17/22 04:00 Plt Count 271 X10^3/uL (150.0-450.0) 09/17/22 04:00 Plt Count Comment Adequate (ADEQUATE) 09/17/22 04:00 MPV 7.5 fL (7.4-11.0) 09/17/22 04:00 Neut % (Auto) 77.1 % (42.0-75.0) H 09/17/22 04:00 Lymph % (Auto) 6.0 % (21.0-51.0) L 09/17/22 04:00 [place] % (Auto) 16.4 % (0.0-13.0) H 09/17/22 04:00 Eos % (Auto) 0.3 % (0.9-2.9) L 09/17/22 04:00 Baso % (Auto) 0.2 % (0.2-1.0) 09/17/22 04:00 Neut # (Auto) 12.5 x10^3/uL (2.2-4.8) H 09/17/22 04:00 Lymph # (Auto) 1.0 X10^3/uL (1.3-2.9) L 09/17/22 04:00 [place] # (Auto) 2.7 x10^3/uL (0.3-0.8) H 09/17/22 04:00 Eos # (Auto) 0.1 x10^3/uL (0.0-0.2) 09/17/22 04:00 Baso # (Auto) 0.0 X10^3/uL (0.0-0.1) 09/17/22 04:00 Absolute Nucleated RBC 0.0 /100WBC 09/17/22 04:00 Total Counted 100 09/17/22 04:00 Neutrophils % (Manual) 73 % (39-76) 09/17/22 04:00 Band Neutrophils % 4 % (0-10) 09/17/22 04:00 Lymphocytes % (Manual) 10 % (13-43) L 09/17/22 04:00 Monocytes % (Manual) 13 % (4-9) H 09/17/22 04:00 Eosinophils % (Manual) 1 % (0-6) 09/16/22 04:45 Metamyelocytes % 2 09/14/22 04:35 Myelocytes % 1 09/13/22 04:16 Plt Morphology Comment Normal (NORMAL) 09/17/22 04:00 RBC Morphology Normal (NORMAL) 09/17/22 04:00 [place] Cells Present 09/14/22 04:35 Sodium 137 mmol/L (136-145) 09/17/22 04:00 Corrected Sodium TNP 09/17/22 04:00 Potassium 3.7 mmol/L (3.5-5.1) 09/17/22 04:00 Chloride 104 mmol/L (98-107) 09/17/22 04:00 Carbon Dioxide 29.2 mmol/L (21-32) 09/17/22 04:00 BUN 19 mg/dL (7-18) H 09/17/22 04:00 Creatinine 0.78 mg/dL (0.70-1.30) 09/17/22 04:00 Est GFR (MDRD) Af Amer > 60 (>60) 09/17/22 04:00 Est GFR (MDRD) Non-Af > 60 (>60) 09/17/22 04:00 Glucose 82 mg/dL (65-99) 09/17/22 04:00 Lactic Acid 2.7 mmol/L (0.4-2.0) H 09/14/22 04:35 Calcium 7.3 mg/dL (8.5-10.1) L 09/17/22 04:00 Corrected Calcium 9.3 mg/dL (8.5-10.1) 09/17/22 04:00 Total Bilirubin 0.50 mg/dL (0.2-1.0) 09/17/22 04:00 AST 29 Units/L (15-37) 09/17/22 04:00 ALT 43 Units/L (12-78) 09/17/22 04:00 Alkaline Phosphatase 53 Units/L (46-116) 09/17/22 04:00 Total Protein 4.4 g/dL (6.4-8.2) L 09/17/22 04:00 Albumin 1.5 g/dL (3.4-5.0) L 09/17/22 04:00 Globulin 2.9 g/dL (2.5-4.5) 09/17/22 04:00 Albumin/Globulin Ratio 0.5 Ratio (1.1-2.1) L 09/17/22 04:00 Lipase 95 Units/L (73-393) 09/12/22 18:20 Specimen Type Catherized urine 09/12/22 21:43 Urine Color Yellow (YELLOW) 09/12/22 21:43 Urine Appearance Slightly hazy (CLEAR) 09/12/22 21:43 Urine pH 8.0 (5.0 - 8.0) 09/12/22 21:43 Ur Specific [place] 1.010 (1.000-1.030) 09/12/22 21:43 Urine Protein 3+ (NEGATIVE) 09/12/22 21:43 Urine Glucose (UA) Negative (NEGATIVE) 09/12/22 21:43 Urine Ketones 1+ (NEGATIVE) 09/12/22 21:43 Urine Blood 4+ (NEGATIVE) 09/12/22 21:43 Urine Nitrite Negative (NEGATIVE) 09/12/22 21:43 Urine Bilirubin Negative (NEGATIVE) 09/12/22 21:43 Urine Urobilinogen 1+ (NORMAL) 09/12/22 21:43 Ur Leukocyte Esterase 1+ (NEGATIVE) 09/12/22 21:43 Urine RBC 20-30 /HPF (0-3) A 09/12/22 21: Urine WBC 5-10 /HPF (0-5) A 09/12/22 21:43 Ur Squamous Epith Cells Rare /HPF (NEGATIVE) 09/12/22 21:43 Urine Bacteria 1+ /HPF (NEGATIVE) 09/12/22 21:43 Urine Sperm Few /HPF (NEGATIVE) 09/12/22 21:43 Ur Culture Indicated? No/not indicated 09/12/22 21:43 Urine Opiates Screen Negative (NEG=<300) 09/12/22 21:43 Urine Methadone Screen Negative (NEG=<300) 09/12/22 21:43 Ur Barbiturates Screen Negative (NEG=<200) 09/12/22 21:43 Ur Phencyclidine Scrn Negative (NEG=<25) 09/12/22 21:43 Ur Amphetamines Screen Positive (NEG=<1000) 09/12/22 21:43 U Benzodiazepines Scrn Negative (NEG=<200) 09/12/22 21:43 Urine Cocaine Screen Negative (NEG=<300) 09/12/22 21:43 U Marijuana (THC) Screen Negative (NEG=<50) 09/12/22 21:43 Blood Type O POSITIVE 09/13/22 09:25 Blood Type O POSITIVE 09/13/22 09:25 Antibody Screen Negative 09/13/22 09:25 Assessment and Plan 1: PO gastrectomy for perforated DU . same PO care . OOB . DVT prophylaxis . Problem Patient Problems: Patient Problems (Updated 09/12/22 @ 21:13 by Kerry Johnson) Pneumoperitoneum (Acute) K66.8 Acute dehydration (Acute) E86.0 Acute hyponatremia (Acute) E87.1 Pleural effusion on right (Acute) J90 Acute renal failure (ARF) (Acute) N17.9 Sepsis (Acute) A41.9
--- NOTE | 2022-09-17 10:15 | DR.PROGNOT ---
HOSPITAL PROGRESS NOTE Progress Note for Day of: Progress Note Date: 09/17/22 Chief Complaint Chief Complaint: doing better today . less abdominal pain and hungry . minimal drainage in STEPHEN . WBC 16.2 Albumin 1.5 afebrile .. Past Medical Family Social History Past Med/Fam/Surg Hx: No changes since H&P Allergies: Allergies No Known Allergies Allergy (Verified 09/12/22 18:12) Vital Signs Vital Signs: Temperature 98.6 F Pulse Rate 93 Respiratory Rate 12 Blood Pressure 145/71 O2 Sat by Pulse Oximetry 99 Physical Exam Oriented: Normal, Time, Person and Place Eyes: Normal Ear: Normal Nose: Normal Throat: Normal Cardiovascular: Tachycardia : Normal GI:Auscultation: Decreased GI:Palpation: Other (evidence acute abdomen) GI: Tenderness: Diffuse Skin: Normal Musculoskeletal: Normal Psychiatric: Normal Mood Description: Calm Affect: Quiet Speech Pattern: Clear and Appropriate Laboratory and Diagnostics Result Diagrams: 09/17/22 04:00 09/17/22 04:00 Labs: 09/13/22 15:24 Abdomen Wound Gram Stain - Final 09/13/22 15:24 Abdomen Wound Culture - Final 09/12/22 20:28 Blood Blood Culture - Preliminary 09/12/22 18:20 Blood Blood Culture - Preliminary Laboratory WBC 16.2 X10^3/uL (3.6-10.0) H 09/17/22 04:00 RBC 3.45 X10^6/uL (4.7-6.0) L 09/17/22 04:00 Hgb 11.0 g/dL (13.5-18.0) L 09/17/22 04:00 Hct 31.6 % (42.0-54.0) L 09/17/22 04:00 MCV 91.5 fL (80.0-100.0) 09/17/22 04:00 MCH 31.8 pg (27.0-34.0) 09/17/22 04:00 MCHC 34.7 g/dL (33.0-35.0) 09/17/22 04:00 RDW 12.9 % (11.6-16.5) 09/17/22 04:00 Plt Count 271 X10^3/uL (150.0-450.0) 09/17/22 04:00 Plt Count Comment Adequate (ADEQUATE) 09/17/22 04:00 MPV 7.5 fL (7.4-11.0) 09/17/22 04:00 Neut % (Auto) 77.1 % (42.0-75.0) H 09/17/22 04:00 Lymph % (Auto) 6.0 % (21.0-51.0) L 09/17/22 04:00 [place] % (Auto) 16.4 % (0.0-13.0) H 09/17/22 04:00 Eos % (Auto) 0.3 % (0.9-2.9) L 09/17/22 04:00 Baso % (Auto) 0.2 % (0.2-1.0) 09/17/22 04:00 Neut # (Auto) 12.5 x10^3/uL (2.2-4.8) H 09/17/22 04:00 Lymph # (Auto) 1.0 X10^3/uL (1.3-2.9) L 09/17/22 04:00 [place] # (Auto) 2.7 x10^3/uL (0.3-0.8) H 09/17/22 04:00 Eos # (Auto) 0.1 x10^3/uL (0.0-0.2) 09/17/22 04:00 Baso # (Auto) 0.0 X10^3/uL (0.0-0.1) 09/17/22 04:00 Absolute Nucleated RBC 0.0 /100WBC 09/17/22 04:00 Total Counted 100 09/17/22 04:00 Neutrophils % (Manual) 73 % (39-76) 09/17/22 04:00 Band Neutrophils % 4 % (0-10) 09/17/22 04:00 Lymphocytes % (Manual) 10 % (13-43) L 09/17/22 04:00 Monocytes % (Manual) 13 % (4-9) H 09/17/22 04:00 Eosinophils % (Manual) 1 % (0-6) 09/16/22 04:45 Metamyelocytes % 2 09/14/22 04:35 Myelocytes % 1 09/13/22 04:16 Plt Morphology Comment Normal (NORMAL) 09/17/22 04:00 RBC Morphology Normal (NORMAL) 09/17/22 04:00 [place] Cells Present 09/14/22 04:35 Sodium 137 mmol/L (136-145) 09/17/22 04:00 Corrected Sodium TNP 09/17/22 04:00 Potassium 3.7 mmol/L (3.5-5.1) 09/17/22 04:00 Chloride 104 mmol/L (98-107) 09/17/22 04:00 Carbon Dioxide 29.2 mmol/L (21-32) 09/17/22 04:00 BUN 19 mg/dL (7-18) H 09/17/22 04:00 Creatinine 0.78 mg/dL (0.70-1.30) 09/17/22 04:00 Est GFR (MDRD) Af Amer > 60 (>60) 09/17/22 04:00 Est GFR (MDRD) Non-Af > 60 (>60) 09/17/22 04:00 Glucose 82 mg/dL (65-99) 09/17/22 04:00 Lactic Acid 2.7 mmol/L (0.4-2.0) H 09/14/22 04:35 Calcium 7.3 mg/dL (8.5-10.1) L 09/17/22 04:00 Corrected Calcium 9.3 mg/dL (8.5-10.1) 09/17/22 04:00 Total Bilirubin 0.50 mg/dL (0.2-1.0) 09/17/22 04:00 AST 29 Units/L (15-37) 09/17/22 04:00 ALT 43 Units/L (12-78) 09/17/22 04:00 Alkaline Phosphatase 53 Units/L (46-116) 09/17/22 04:00 Total Protein 4.4 g/dL (6.4-8.2) L 09/17/22 04:00 Albumin 1.5 g/dL (3.4-5.0) L 09/17/22 04:00 Globulin 2.9 g/dL (2.5-4.5) 09/17/22 04:00 Albumin/Globulin Ratio 0.5 Ratio (1.1-2.1) L 09/17/22 04:00 Lipase 95 Units/L (73-393) 09/12/22 18:20 Specimen Type Catherized urine 09/12/22 21:43 Urine Color Yellow (YELLOW) 09/12/22 21:43 Urine Appearance Slightly hazy (CLEAR) 09/12/22 21:43 Urine pH 8.0 (5.0 - 8.0) 09/12/22 21:43 Ur Specific [place] 1.010 (1.000-1.030) 09/12/22 21:43 Urine Protein 3+ (NEGATIVE) 09/12/22 21:43 Urine Glucose (UA) Negative (NEGATIVE) 09/12/22 21:43 Urine Ketones 1+ (NEGATIVE) 09/12/22 21:43 Urine Blood 4+ (NEGATIVE) 09/12/22 21:43 Urine Nitrite Negative (NEGATIVE) 09/12/22 21:43 Urine Bilirubin Negative (NEGATIVE) 09/12/22 21:43 Urine Urobilinogen 1+ (NORMAL) 09/12/22 21:43 Ur Leukocyte Esterase 1+ (NEGATIVE) 09/12/22 21:43 Urine RBC 20-30 /HPF (0-3) A 09/12/22 21:43 Urine WBC 5-10 /HPF (0-5) A 09/12/22 21:43 Ur Squamous Epith Cells Rare /HPF (NEGATIVE) 09/12/22 21:43 Urine Bacteria 1+ /HPF (NEGATIVE) 09/12/22 21:43 Urine Sperm Few /HPF (NEGATIVE) 09/12/22 21:43 Ur Culture Indicated? No/not indicated 09/12/22 21:43 Urine Opiates Screen Negative (NEG=<300) 09/12/22 21:43 Urine Methadone Screen Negative (NEG=<300) 09/12/22 21:43 Ur Barbiturates Screen Negative (NEG=<200) 09/12/22 21:43 Ur Phencyclidine Scrn Negative (NEG=<25) 09/12/22 21:43 Ur Amphetamines Screen Positive (NEG=<1000) 09/12/22 21:43 U Benzodiazepines Scrn Negative (NEG=<200) 09/12/22 21:43 Urine Cocaine Screen Negative (NEG=<300) 09/12/22 21:43 U Marijuana (THC) Screen Negative (NEG=<50) 09/12/22 21:43 Blood Type O POSITIVE 09/13/22 09:25 Blood Type O POSITIVE 09/13/22 09:25 Antibody Screen Negative 09/13/22 09:25 Assessment and Plan 1: PO gastrectomy for recurrent perforated DU . same PO care . D/C NGT same IV ABT . OOB . DVT prophylaxis . Problem Patient Problems: Patient Problems (Updated 09/12/22 @ 21:13 by Kerry Johnson) Pneumoperitoneum (Acute) K66.8 Acute dehydration (Acute) E86.0 Acute hyponatremia (Acute) E87.1 Pleural effusion on right (Acute) J90 Acute renal failure (ARF) (Acute) N17.9 Sepsis (Acute) A41.9
--- NOTE | 2022-09-17 12:40 | RAD ---
HISTORYPostop leukocytosisSTUDYPortable AP chestCOMPARISONMarch 2022FINDINGSHeart size remains normal. Interval appearance of bilateral lower lobe airspace involvement, minimal on the left and extensive on the right. The upper lobes are clear. There is no definite pneumothorax.IMPRESSIONInterval development of basal opacification especially at the right lower lung, consistent with pneumonia/atelectasis. A pleural fluid component may be present.Electronically signed by: RAY CHU (Sep 17, 2022 12:38:56)
[2022-09-17 21:04] LABS: BILIRUBIN,URINE NEGATIVE (NEGATIVE); BLOOD/HEMOGLOBIN,URINE 4+ (NEGATIVE); GLUCOSE, URINE NEGATIVE (NEGATIVE); KETONES,URINE 4+ (NEGATIVE); LEUKOCYTE ESTERASE ,URINE NEGATIVE (NEGATIVE); NITRITES,URINE NEGATIVE (NEGATIVE); PROTEIN,URINE 2+ (NEGATIVE); UROBILINOGEN,URINE NORMAL (NORMAL)
[2022-09-17 21:07] LABS: APPEARANCE,URINE CLEAR (CLEAR); COLOR,URINE DARK YELLOW (YELLOW)
[2022-09-17 21:13] LABS: BACTERIA,URINE NEGATIVE /HPF (NEGATIVE); SQUAMOUS EPITHELIAL CELL,UR RARE /HPF (NEGATIVE)
[2022-09-18 04:48] LABS: BASOPHILS % (AUTO) 0.2 % (0.2-1.0); EOSINOPHILS # (AUTO) 0.2 x10^3/uL (0.0-0.2); HEMOGLOBIN 11.4 g/dL (13.5-18.0); LYMPHOCYTES # (AUTO) 1.3 X10^3/uL (1.3-2.9); LYMPHOCYTES % (AUTO) 7.9 % (21.0-51.0); MEAN CORPUSCULAR HEMOGLOBIN 31.2 pg (27.0-34.0); MEAN CORPUSCULAR HGB CONC 34.5 g/dL (33.0-35.0); MEAN CORPUSCULAR VOLUME 90.4 fL (80.0-100.0); MEAN PLATELET VOLUME 7.6 fL (7.4-11.0); MONOCYTES # (AUTO) 2.5 x10^3/uL (0.3-0.8); MONOCYTES % (AUTO) 14.6 % (0.0-13.0); NEUTROPHILS % (AUTO) 76.3 % (42.0-75.0); RED BLOOD COUNT 3.66 X10^6/uL (4.7-6.0); RED CELL DISTRIBUTION WIDTH 12.9 % (11.6-16.5)
[2022-09-18 04:56] LABS: ALANINE AMINOTRANSFERASE 39 Units/L (12-78); ALBUMIN 1.7 g/dL (3.4-5.0); ALKALINE PHOSPHATASE 52 Units/L (46-116); ASPARTATE AMINO TRANSFERASE 29 Units/L (15-37); BLOOD UREA NITROGEN 12 mg/dL (7-18); CALCIUM 7.2 mg/dL (8.5-10.1); CARBON DIOXIDE 28.1 mmol/L (21-32); CHLORIDE 102 mmol/L (98-107); CREATININE 0.84 mg/dL (0.70-1.30); SODIUM 135 mmol/L (136-145); TOTAL PROTEIN 4.7 g/dL (6.4-8.2); eGFR NON BLACK RACES > 60 (>60)
[2022-09-18] MEDS: ZOSYN VIAL 3.375 GRAMS 3.375 G in NS 100 ML IV 100 ML IV SCH ×3 (05:21→22:20)
[2022-09-18] MEDS: LR 1,000 ML IV 1,000 ML IV SCH ×3 (05:22→22:20)
[2022-09-18 05:29] LABS: BAND NEUTROPHILS % 3 % (0-10)
[2022-09-18 05:30] LABS: METAMYELOCYTES % 2; PLATELET MORPHOLOGY COMMENT NORMAL (NORMAL)
[2022-09-18] MEDS ORDERED: POTASSIUM CHL 60 MEQ/NS 0.45% 500 ML IV PRN ×2 (05:51→10:02)
[2022-09-18] MEDS ORDERED: POTASSIUM CHLORIDE LIQ 20 MEQ UDC PO PRN ×2 (05:51→10:02)
[2022-09-18] MEDS ORDERED: K-RIDER 10 MEQ/NS 100 ML 10 MEQ/100 ML BAG IV PRN ×2 (05:51→10:02)
[2022-09-18] MEDS ORDERED: POTASSIUM CHL 40 MEQ/NS 0.45% 500 ML IV PRN ×2 (05:51→10:02)
[2022-09-18] MEDS ORDERED: KLOR-CON PO PRN ×2 (05:51→10:02)
[2022-09-18] MEDS ORDERED: MICRO K EXTEN CAP 10 MEQ PO PRN ×2 (05:51→10:02)
[2022-09-18] MEDS: PULMICORT NEB TX 0.5 MG NEB SCH ×2 (08:49→20:40)
[2022-09-18] MEDS: DUONEB 0.5 MG/3 MG (3 mL) NEB SCH ×4 (08:50→20:40)
[2022-09-18] MEDS: LOVENOX INJ 40 MG SYR SC SCH (10:00)
[2022-09-18] MEDS ORDERED: MAGNESIUM SULFATE 1 GRAM/100 mL PREMIX 1 G/100 ML BAG IV PRN ×2 (10:02)
[2022-09-18] MEDS ORDERED: K-DUR TAB 20 MEQ PO PRN (10:02)
[2022-09-18] MEDS: PROTONIX INJ 40 MG VIAL IVP SCH ×2 (10:23→20:39)
[2022-09-18] MEDS: MAGNESIUM SULFATE 1 GRAM/100 mL PREMIX 1 G/100 ML BAG IV PRN ×2 (14:53→15:59)
[2022-09-18] MEDS: K-DUR TAB 20 MEQ PO PRN (17:42)
--- NOTE | 2022-09-18 18:41 | DR.OPNOTE ---
OP NOTE Pre-Op Diagnosis: Bowel perforation, possible recurrent perforated duodenal ulcer Post-Op Diagnosis: Recurrent duodenal perforation , Procedure Date Date Of Procedure: 09/13/22 Procedure: PROCEDURE :Attempted laparoscopy converted to laparotomy with culture and wash out of abdominal contamination, resection of first portion duodenum and antrum with retro colic Bilroth II reconstruction . NARRATIVE : The patient was taken to the operative suite and placed in the supine position. General endotracheal anesthesia induced. The entire abdomen was prepped and draped in sterile fashion. Time out for the procedure obtained . A 5 mm incision was made in the mid abdomen to the left of the mid line and a 5 mm optical trocar used to enter the abdominal cavity and the cavity insufflated to 15 mm of Mercury with carbon dioxide and an angled scope placed through the abdominal trocar showing significant adhesions. At this point I decided to convert to an open laparotomy. The back table was prepared and an upper midline incision made with a # 10 blade knife . The fascia and peritoneum were opened with electrocautery. There was an obvious hole in the anterior wall of the first portion of the duodenum and there was an old Ayan patch in place. Nasogastric tube position was confirmed. Dissection carried out along the lesser curvature of the stomach dividing all tissue between ties of 2-0 silk . The gastroduodenal artery was divided between 2-0 silk ligatures. The first potion of the duodenum was divided with a ELYSIA staple line fired across it which was distal to the ulcer. ELYSIA staple fires x 2 required to resect the antrum and the specimen removed. The small bowel was identified and followed all the way to the ileocecal valve .Portion of bowel 60mm from the ligament of Treitz selected for the anastomosis . Electrocautery used to make a defect in the mid colonic mesentery and the small bowel brought through the mesenteric defect in retro colic fashion and secured to the posterior aspect of the stomach with i nterrupted silk sutures. The stomach and small bowel were opened with electrocautery and a ELYSIA stapler used to create the anastomosis. The remaining defect closed with 2 layers of interrupted silk sutures .At the site of the colonic mesenteric defect the bowel approximated to the mesentery with interrupted silk suture ligatures . Position of the NG tube confirmed which was above the anastomosis. 5 mm incisions were made x 2 in the right side of the abdomen and a Antwan San drain brought through each of these placing one in Hyatt's pouch and the second one was more anterior into the area of the duodenal stump closure. At this point the fascia was closed with running looped # 1 PDS suture . Skin closed loosely with roe as there is there a significant risk of infection. The drains secured to the skin with 2-0 silk sutures. Dressing applied to the midline abdominal wound and he was taken to the recovery room in good condition. Type of Anesthesia: General Anesthetic w/ETT Findings: Recurrent perforated duodenal ulcer at site of previous Ayan patch, significant contamination of the abdominal cavity. Specimen/Pathology: 1st portion of duodenum and antrum of stomach Type of Fluids Used:: Lactated Ringers Total Amount of Fluid Infused:: 2500 cc Urine output: 200 cc EBL: 250 cc Drains/Tubes Placed: Antwan San (STEPHEN drains x 2 , (more anterior in Hyatt's pouch, most posterior at duodenal stump closure )), Nieves and NG tube Cultures: Cultures of contaminated abdominal cavity, aerobic and anerobic Complications:: none Needle/Sponge Count:: correct Disposition/Condition: Pt. tolerated procedure without difficulty. Extubated in the OR and taken to P ACU in stable condition.
--- NOTE | 2022-09-19 00:51 | NOTE.SOAP ---
Soap Note Note for Day of Date of Exam: 09/18/22 Subjective Data Subjective Data: POD # 5 after antrectomy an Bilroth II reconstruction for a recurrent perforated duodenal ulcer. NG tube anf Nieves out. STEPHEN drains still in place with moderate serosangunous output. WBC up and CXR shows right sided pleural effusion.Now taking diet. Objective Data Temperature: 99.6 F Pulse Rate: 101 Respiratory Rate: 16 Blood Pressure: 118/62 O2 Sat by Pulse Oximetry: 98 Objective Data: Abdomen soft and incision clean. Drains in place. Assessment Assessment: S/P surgery for recurrent perforated duodenal ulcer. Plan Plan: Repeat CXR in AM . Continue antibiotics and Protonix.
[2022-09-19 05:32] LABS: BASOPHILS % (AUTO) 0.2 % (0.2-1.0); EOSINOPHILS # (AUTO) 0.2 x10^3/uL (0.0-0.2); EOSINOPHILS % (AUTO) 0.9 % (0.9-2.9); HEMATOCRIT 28.6 % (42.0-54.0); HEMOGLOBIN 9.8 g/dL (13.5-18.0); LYMPHOCYTES # (AUTO) 1.2 X10^3/uL (1.3-2.9); LYMPHOCYTES % (AUTO) 7.4 % (21.0-51.0); MEAN CORPUSCULAR HEMOGLOBIN 31.2 pg (27.0-34.0); MEAN CORPUSCULAR HGB CONC 34.4 g/dL (33.0-35.0); MEAN CORPUSCULAR VOLUME 90.7 fL (80.0-100.0); MEAN PLATELET VOLUME 7.6 fL (7.4-11.0); MONOCYTES # (AUTO) 1.9 x10^3/uL (0.3-0.8); MONOCYTES % (AUTO) 11.5 % (0.0-13.0); NEUTROPHILS # (AUTO) 12.9 x10^3/uL (2.2-4.8); RED BLOOD COUNT 3.15 X10^6/uL (4.7-6.0); RED CELL DISTRIBUTION WIDTH 13.2 % (11.6-16.5); WHITE BLOOD COUNT 16.2 X10^3/uL (3.6-10.0)
[2022-09-19 05:36] LABS: MAGNESIUM 1.7 mg/dL (2.0-2.9)
[2022-09-19] MEDS: ZOSYN VIAL 3.375 GRAMS 3.375 G in NS 100 ML IV 100 ML IV SCH ×3 (06:16→21:08)
[2022-09-19] MEDS: LR 1,000 ML IV 1,000 ML IV SCH (06:16)
[2022-09-19 06:18] LABS: BAND NEUTROPHILS % 3 % (0-10); METAMYELOCYTES % 2; PLATELET MORPHOLOGY COMMENT NORMAL (NORMAL)
[2022-09-19] MEDS: K-DUR TAB 20 MEQ PO PRN (06:30)
[2022-09-19] MEDS: MAGNESIUM SULFATE 1 GRAM/100 mL PREMIX 1 G/100 ML BAG IV PRN ×2 (06:30→10:06)
[2022-09-19] MEDS: PULMICORT NEB TX 0.5 MG NEB SCH ×2 (08:42→21:37)
[2022-09-19] MEDS: DUONEB 0.5 MG/3 MG (3 mL) NEB SCH ×4 (08:42→21:37)
[2022-09-19] MEDS: LOVENOX INJ 40 MG SYR SC SCH (10:00)
[2022-09-19] MEDS: PROTONIX INJ 40 MG VIAL IVP SCH ×2 (10:06→21:08)
--- NOTE | 2022-09-19 11:08 | RAD ---
HISTORYRIGHT PLEURAL EFFUSION Relevant Clinical InformationSTUDYCHEST, 1 [id number]/02/2023FINDINGSThe trachea is midline. There is a left subclavian line with the tip in the SVC unchanged since prior study. There is a persistent small to moderate right pleural effusion with a right lower lobe radiopacity. Minimal atelectasis in the left base.IMPRESSIONOverall no interval change, stable small to moderate right pleural effusion with a right lower lobe radiopacity probably atelectasisElectronically signed by: Nadeen Maya (Sep 19, 2022 11:07:21)
--- NOTE | 2022-09-19 19:36 | NOTE.SOAP ---
Soap Note Note for Day of Date of Exam: 09/19/22 Subjective Data Subjective Data: Doing well after antrectomy for recurrent perforated duodenal ulcer with significant abdominal contamination. All tubes removed. STEPHEN drains x 2 to the RUQ with sersanguanous output. Known right side pleural effusion. Elevated WBC. Culture of abdominal fluid with no growth of bacteria. Objective Data Temperature: 98.3 F Pulse Rate: 111 Respiratory Rate: 15 Blood Pressure: 122/69 O2 Sat by Pulse Oximetry: 97 Objective Data: A& O x 3 , eating , wound dressing dry. Assessment Assessment: S/P perforated duodenal ulcer with antrectomy. Doing well. Right pleural effusion. Plan Plan: Continue IV antibiotics, begin removing drains in AM. Lateral decubitus CXR to see if the fluid layers out . It may require a chest tube.
[2022-09-20 05:03] LABS: MAGNESIUM 1.8 mg/dL (2.0-2.9)
[2022-09-20] MEDS: ZOSYN VIAL 3.375 GRAMS 3.375 G in NS 100 ML IV 100 ML IV SCH ×2 (05:36→15:00)
[2022-09-20] MEDS: MAGNESIUM SULFATE 1 GRAM/100 mL PREMIX 1 G/100 ML BAG IV PRN ×2 (06:25→06:32)
[2022-09-20] MEDS: K-DUR TAB 20 MEQ PO PRN (06:33)
[2022-09-20] MEDS: DUONEB 0.5 MG/3 MG (3 mL) NEB SCH ×4 (08:04→20:11)
[2022-09-20] MEDS: PULMICORT NEB TX 0.5 MG NEB SCH ×2 (08:05→20:11)
--- NOTE | 2022-09-20 08:51 | RAD ---
HISTORYRIGHT PLEURAL EFFUSION, PERFORATED BOWEL, POSSIBLY DUODENAL ULCER Relevant Clinical InformationSTUDYCHEST,LATERAL [id number]/04/2023FINDINGSA right lateral decubitus film was performed. There is a layering moderate pleural effusion. The left lung demonstrate no significant pleural effusions. There is an unchanged left central line with the tip in the SVC. No pneumothorax.IMPRESSIONLayering moderate right pleural effusion.Electronically signed by: Nadeen Maya (Sep 20, 2022 08:50:04)
[2022-09-20 10:06] VITALS: BMI 22.5
[2022-09-20] MEDS: PROTONIX INJ 40 MG VIAL IVP SCH ×2 (10:58→20:54)
[2022-09-20] MEDS: LOVENOX INJ 40 MG SYR SC SCH (10:58)
--- NOTE | 2022-09-20 20:13 | NOTE.SOAP ---
Soap Note Note for Day of Date of Exam: 09/20/22 Subjective Data Subjective Data: Continues to improve after laparotomy and antrectomy and BII reconstruction . Taking po diet. Has right pleral effusion demonstrated on lateral decubitus CXR. Drains with serous fluid out. Objective Data Temperature: 98.5 F Pulse Rate: 101 Respiratory Rate: 15 Blood Pressure: 121/70 O2 Sat by Pulse Oximetry: 98 Objective Data: Drains removed. Abdominal incision clean and dry. Decreased breath sounds on right Assessment Assessment: As above. persistent problem is the right side pleural sympathetic effusion. Continues to improve. Plan Plan: Right chest tube placement tomorrow. Change to po antibiotics.
[2022-09-21] MEDS: MAGNESIUM SULFATE 1 GRAM/100 mL PREMIX 1 G/100 ML BAG IV PRN (05:49)
[2022-09-21] MEDS: LOVENOX INJ 40 MG SYR SC SCH (08:00)
[2022-09-21] MEDS: DUONEB 0.5 MG/3 MG (3 mL) NEB SCH ×4 (08:13→21:05)
[2022-09-21] MEDS: PULMICORT NEB TX 0.5 MG NEB SCH ×2 (08:13→21:05)
[2022-09-21] MEDS ORDERED: DIPRIVAN VIAL 20 ML ONE (08:58)
[2022-09-21] MEDS ORDERED: VERSED ONE (08:58)
[2022-09-21] MEDS: PROTONIX INJ 40 MG VIAL IVP SCH ×2 (09:40→20:19)
[2022-09-21] MEDS ORDERED: NS 1,000 ML IV 1,000 ML ONE (10:08)
[2022-09-21] MEDS ORDERED: KETAMINE HCL ONE (10:10)
--- NOTE | 2022-09-21 11:10 | RAD ---
HISTORYCHEST TUBE PLACEMENTSTUDYCHEST, 1 [id number]/05/2023.TECHNIQUEPA or AP view of the chestFINDINGSCardiac and mediastinal contours are within normal limits. External wires noted. Right thoracostomy tube is present with the tip at the right mid rober thorax. Significant improvement in right pleural effusion. Small pleural effusion remains. There is subsegmental atelectasis in the right base. No discernible pneumothorax.IMPRESSIONSignificant improvement in right pleural effusion after chest tube placement.Electronically signed by: Howard Perez (Sep 21, 2022 11:09:14)
[2022-09-21] MEDS: DILAUDID INJ IVP PRN ×3 (11:17→22:19)
[2022-09-21] MEDS: LEVAQUIN TAB 500 MG PO SCH (11:21)
--- NOTE | 2022-09-21 13:53 | OR.IMMED ---
IMMEDIATE POST-OP NOTE Immediate Post-Op Note Pre-Op Diagnosis: right pleural effusion Post-Op Diagnosis: same Procedure: right chest tube placement Description of Procedure: see operative summary Surgeon/Packaging Assembler: Deon Findings: large right pleural effusion, straw colored fluid , 700 cc Specimens Removed: culture of pleural fluid Estimated Blood Loss: minimal Drains: Chest Tube (36 fr) Complications: none Post Hospital Plans and Medications: Resume diet, chest tube to suction, post procedure CXR shows good expansion right lung and complete evacuation of then right pleural effusion
--- NOTE | 2022-09-21 21:51 | NOTE.SOAP ---
Soap Note Note for Day of Date of Exam: 09/21/22 Subjective Data Subjective Data: Continue to make good progress after antrectomy for recurrent perforation of duodenal ulcer. All drains out and tolerating po diet. On po antibiotics . Rigjht chest tube placed today and 700 cc straw colored fluid removed. Pos procedure CXR clear with no pneumothorax. Objective Data Temperature: 97.8 F Pulse Rate: 101 Respiratory Rate: 19 Blood Pressure: 122/75 O2 Sat by Pulse Oximetry: 98 Objective Data: Abdomen soft and benign and the abdominal incision is healing well without redness or drainage . Assessment Assessment: Recurrent perforated duodenal ulcer / S/P antrectomy and Bilroth II. Plan Plan: Continue on diet. Will monitor Chest tube drainage and D/C MAURIZIO.
--- NOTE | 2022-09-21 23:41 | DR.OPNOTE ---
OP NOTE Pre-Op Diagnosis: Acute abdomen, severe dehydration Post-Op Diagnosis: same Procedure Date Date Of Procedure: 09/12/22 Procedure: PROCEDURE: LEFT SUBCLAVIAN TRIPLE LUMEN CATHETER PLACEMENT NARRATIVE : The patient was in the emergency room. He was placed in Trendelenburg position and the left chest and left neck were prepped and draped in sterile fashion. The skin underneath the left clavicle was infiltrated with 1% Xylocaine. 16 gauge needle use to puncture the left subclavian vein and a 0.035 inch guidewire placed without difficulty. Incision made over the guide wire at the skin edge with the number 11 knife blade and the dilator placed over the guide wire into the left subclavian vein. They dilator was removed and the catheter placed over the guide wire to 20 centimeters. Guide wire removed. All ports were aspirated of blood and flushed with heparinized saline . The catheter secured to the skin with interrupted silk sutures and a biopatch placed over the skin entrance of the catheter . X-ray showed good placement with no pneumothorax. Type of Anesthesia: Local (1 % Xylocaine) Findings: as above , CT - perforated viscous EBL: minimal Complications:: none Disposition/Condition: Pt. tolerated procedure without difficulty.
[2022-09-22] MEDS: DILAUDID INJ IVP PRN ×2 (05:05→20:19)
[2022-09-22] MEDS: DUONEB 0.5 MG/3 MG (3 mL) NEB SCH ×4 (08:03→20:50)
[2022-09-22] MEDS: PULMICORT NEB TX 0.5 MG NEB SCH ×2 (08:03→20:50)
[2022-09-22] MEDS: LEVAQUIN TAB 500 MG PO SCH (08:40)
[2022-09-22] MEDS: PROTONIX INJ 40 MG VIAL IVP SCH ×2 (08:41→20:18)
[2022-09-22] MEDS: LOVENOX INJ 40 MG SYR SC SCH (09:01)
[2022-09-22 11:56] LABS: HEMOGLOBIN 10.6 g/dL (13.5-18.0)
[2022-09-22 12:00] LABS: BASOPHILS # (AUTO) 0.1 X10^3/uL (0.0-0.1); BASOPHILS % (AUTO) 0.5 % (0.2-1.0); EOSINOPHILS # (AUTO) 0.2 x10^3/uL (0.0-0.2); HEMATOCRIT 31.3 % (42.0-54.0); LYMPHOCYTES # (AUTO) 1.1 X10^3/uL (1.3-2.9); LYMPHOCYTES % (AUTO) 5.9 % (21.0-51.0); MEAN CORPUSCULAR HGB CONC 33.9 g/dL (33.0-35.0); MEAN CORPUSCULAR VOLUME 91.4 fL (80.0-100.0); MEAN PLATELET VOLUME 7.3 fL (7.4-11.0); MONOCYTES # (AUTO) 1.6 x10^3/uL (0.3-0.8); MONOCYTES % (AUTO) 8.8 % (0.0-13.0); NEUTROPHILS # (AUTO) 15.2 x10^3/uL (2.2-4.8); NEUTROPHILS % (AUTO) 83.8 % (42.0-75.0); RED BLOOD COUNT 3.42 X10^6/uL (4.7-6.0); RED CELL DISTRIBUTION WIDTH 13.7 % (11.6-16.5); WHITE BLOOD COUNT 18.2 X10^3/uL (3.6-10.0)
[2022-09-22 12:14] LABS: ALANINE AMINOTRANSFERASE 43 Units/L (12-78); ALBUMIN 1.9 g/dL (3.4-5.0); ALKALINE PHOSPHATASE 61 Units/L (46-116); ASPARTATE AMINO TRANSFERASE 35 Units/L (15-37); BLOOD UREA NITROGEN 15 mg/dL (7-18); CALCIUM 7.6 mg/dL (8.5-10.1); CARBON DIOXIDE 32.1 mmol/L (21-32); CHLORIDE 100 mmol/L (98-107); COR CA(FOR HYPOALB) 9.3 mg/dL (8.5-10.1); CREATININE 0.82 mg/dL (0.70-1.30); MAGNESIUM 1.8 mg/dL (2.0-2.9); SODIUM 134 mmol/L (136-145); TOTAL PROTEIN 5.9 g/dL (6.4-8.2); eGFR NON BLACK RACES > 60 (>60)
[2022-09-22] MEDS: MAGNESIUM SULFATE 1 GRAM/100 mL PREMIX 1 G/100 ML BAG IV PRN ×2 (12:39→13:45)
--- NOTE | 2022-09-22 19:26 | NOTE.SOAP ---
Soap Note Note for Day of Date of Exam: 09/22/22 Subjective Data Subjective Data: S/p antrectomy and Bilroth II reconstruction for recurrent perforated duodenal ulcer. Doing very well. On all po meds and diet. Complicated by right pleural sympathetic effusion s/p chest tube placement yesterday. Objective Data Temperature: 98.7 F Pulse Rate: 110 Respiratory Rate: 12 Blood Pressure: 113/64 O2 Sat by Pulse Oximetry: 97 Objective Data: Abdomen soft and benign . Incision clean and dry . Right chest tube in place. Hgb=10.6, WBC=18.2. Initial ct output 700 cc, 200 cc total since yesterfday Assessment Assessment: as above, Plan Plan: Continue antibiotics and will obtain CXR on water seal in AM.
[2022-09-23 05:01] LABS: BASOPHILS # (AUTO) 0.1 X10^3/uL (0.0-0.1); BASOPHILS % (AUTO) 0.4 % (0.2-1.0); EOSINOPHILS # (AUTO) 0.2 x10^3/uL (0.0-0.2); EOSINOPHILS % (AUTO) 1.5 % (0.9-2.9); HEMATOCRIT 28.7 % (42.0-54.0); HEMOGLOBIN 9.9 g/dL (13.5-18.0); LYMPHOCYTES # (AUTO) 1.4 X10^3/uL (1.3-2.9); LYMPHOCYTES % (AUTO) 9.2 % (21.0-51.0); MEAN CORPUSCULAR HEMOGLOBIN 31.6 pg (27.0-34.0); MEAN CORPUSCULAR HGB CONC 34.6 g/dL (33.0-35.0); MEAN CORPUSCULAR VOLUME 91.3 fL (80.0-100.0); MEAN PLATELET VOLUME 7.3 fL (7.4-11.0); MONOCYTES # (AUTO) 1.6 x10^3/uL (0.3-0.8); MONOCYTES % (AUTO) 10.5 % (0.0-13.0); NEUTROPHILS % (AUTO) 78.4 % (42.0-75.0); RED BLOOD COUNT 3.15 X10^6/uL (4.7-6.0); RED CELL DISTRIBUTION WIDTH 13.7 % (11.6-16.5); WHITE BLOOD COUNT 15.3 X10^3/uL (3.6-10.0)
[2022-09-23 05:10] LABS: ALANINE AMINOTRANSFERASE 40 Units/L (12-78); ALBUMIN 1.9 g/dL (3.4-5.0); ALKALINE PHOSPHATASE 70 Units/L (46-116); ASPARTATE AMINO TRANSFERASE 38 Units/L (15-37); BLOOD UREA NITROGEN 16 mg/dL (7-18); CALCIUM 7.4 mg/dL (8.5-10.1); CARBON DIOXIDE 32.1 mmol/L (21-32); CHLORIDE 100 mmol/L (98-107); COR CA(FOR HYPOALB) 9.1 mg/dL (8.5-10.1); CREATININE 0.89 mg/dL (0.70-1.30); MAGNESIUM 1.8 mg/dL (2.0-2.9); SODIUM 135 mmol/L (136-145); TOTAL PROTEIN 5.8 g/dL (6.4-8.2); eGFR NON BLACK RACES > 60 (>60)
[2022-09-23] MEDS: DUONEB 0.5 MG/3 MG (3 mL) NEB SCH ×4 (08:23→21:17)
[2022-09-23] MEDS: PULMICORT NEB TX 0.5 MG NEB SCH ×2 (08:23→21:17)
[2022-09-23] MEDS: LOVENOX INJ 40 MG SYR SC SCH (08:34)
[2022-09-23] MEDS: PROTONIX INJ 40 MG VIAL IVP SCH ×2 (08:34→21:10)
[2022-09-23] MEDS: LEVAQUIN TAB 500 MG PO SCH (08:34)
--- NOTE | 2022-09-23 10:12 | RAD ---
HISTORYChest 2STUDYAP chestCOMPARISONApril 2022FINDINGSThere is no change in appearance of heart, lungs, or mediastinum. Stable position of right chest tube and left subclavian line. There is no evidence for pneumothorax or developing consolidation.IMPRESSIONNo change.Electronically signed by: RAY CHU (Sep 23, 2022 10:12:04)
[2022-09-23] MEDS: DILAUDID INJ IVP PRN (21:10)
[2022-09-24 05:04] LABS: BASOPHILS % (AUTO) 0.4 % (0.2-1.0); EOSINOPHILS # (AUTO) 0.2 x10^3/uL (0.0-0.2); EOSINOPHILS % (AUTO) 1.7 % (0.9-2.9); HEMATOCRIT 27.7 % (42.0-54.0); HEMOGLOBIN 9.8 g/dL (13.5-18.0); LYMPHOCYTES # (AUTO) 1.8 X10^3/uL (1.3-2.9); LYMPHOCYTES % (AUTO) 16.8 % (21.0-51.0); MEAN CORPUSCULAR HGB CONC 35.2 g/dL (33.0-35.0); MEAN CORPUSCULAR VOLUME 90.8 fL (80.0-100.0); MEAN PLATELET VOLUME 7.2 fL (7.4-11.0); MONOCYTES # (AUTO) 1.3 x10^3/uL (0.3-0.8); MONOCYTES % (AUTO) 12.1 % (0.0-13.0); NEUTROPHILS # (AUTO) 7.5 x10^3/uL (2.2-4.8); RED BLOOD COUNT 3.05 X10^6/uL (4.7-6.0); RED CELL DISTRIBUTION WIDTH 14.1 % (11.6-16.5); WHITE BLOOD COUNT 10.8 X10^3/uL (3.6-10.0)
[2022-09-24 05:18] LABS: ALANINE AMINOTRANSFERASE 38 Units/L (12-78); ALBUMIN 1.9 g/dL (3.4-5.0); ALKALINE PHOSPHATASE 70 Units/L (46-116); ASPARTATE AMINO TRANSFERASE 34 Units/L (15-37); BLOOD UREA NITROGEN 17 mg/dL (7-18); CALCIUM 7.7 mg/dL (8.5-10.1); CARBON DIOXIDE 32.4 mmol/L (21-32); CHLORIDE 101 mmol/L (98-107); COR CA(FOR HYPOALB) 9.4 mg/dL (8.5-10.1); CREATININE 0.83 mg/dL (0.70-1.30); SODIUM 137 mmol/L (136-145); TOTAL PROTEIN 5.8 g/dL (6.4-8.2); eGFR NON BLACK RACES > 60 (>60)
[2022-09-24] MEDS: LEVAQUIN TAB 500 MG PO SCH (08:27)
[2022-09-24] MEDS: PROTONIX INJ 40 MG VIAL IVP SCH ×2 (08:27→20:38)
[2022-09-24] MEDS: LOVENOX INJ 40 MG SYR SC SCH (08:28)
[2022-09-24] MEDS: PULMICORT NEB TX 0.5 MG NEB SCH ×2 (08:57→20:03)
[2022-09-24] MEDS: DUONEB 0.5 MG/3 MG (3 mL) NEB SCH ×4 (08:57→20:03)
--- NOTE | 2022-09-24 10:05 | NOTE.SOAP ---
Soap Note Note for Day of Date of Exam: 09/23/22 Subjective Data Subjective Data: Continue to do well after antrectomy for perforated ulcer .Now s/p right chest tube placement, for right pleural effusion. CT drainage has slowed. Objective Data Temperature: 98.6 F Pulse Rate: 97 Respiratory Rate: 10 Blood Pressure: 117/64 O2 Sat by Pulse Oximetry: 96 Objective Data: Abdomen soft, taking diet, CT drainage decreasing . Assessment Assessment: Continues to improve after surgery and right chest tube placement. Plan Plan: Probably remove CT tomorrow.
--- NOTE | 2022-09-24 16:54 | RAD ---
EXAM: CHEST X-RAYHISTORY: Evaluation status post chest tube removal. Perforated bowel, possibly duodenal ulcer.TECHNIQUE: AP CXR. Dated September 24, 2022 at 4:12 PM.COMPARISON: CXR dated September 23, 2022.FINDINGS:Status post interval removal of previously seen right sided chest tube. There is a left anterior chest wall chest port in situ with the distal tip in the distal SVC (adequate position).The heart size and mediastinum are within normal limits. The lung davison and costophrenic angles are clear. There is no acute parenchymal infiltrate, pleural effusion, or pneumothorax seen. The visualized bony structures are within normal limits.IMPRESSION:1. No evidence for acute cardiopulmonary disease seen.2. Status post chest tube removal with no discernible residual pneumothorax.Electronically signed by: Omaira Ignacio (Sep 24, 2022 16:53:05)
--- NOTE | 2022-09-24 20:30 | NOTE.SOAP ---
Soap Note Note for Day of Date of Exam: 09/24/22 Subjective Data Subjective Data: Continues to make good progress. . Eating well. Chest tube outout decreased. Objective Data Temperature: 98.4 F Pulse Rate: 108 Respiratory Rate: 13 Blood Pressure: 117/67 O2 Sat by Pulse Oximetry: 98 Objective Data: Right chest tub removed and CXR shows resolution of the effusion and no pneumothorax. WBC =10.8, Incision clean and dry. Assessment Assessment: S/p perforated duodenal ulcer ( second event), with right pleural effusion. No growth from the pleural fluid. Plan Plan: Probably D/C to [facility] tomorrow.
[2022-09-24] MEDS: DILAUDID INJ IVP PRN (20:39)
--- NOTE | 2022-09-25 01:16 | DR.OPNOTE ---
OP NOTE Pre-Op Diagnosis: RIGHT PLEURAL EFFUSION Post-Op Diagnosis: SAME Procedure Date Date Of Procedure: 09/21/22 Procedure: PROCEDURE: RIGHT CHEST TUBE PLACEMENT NARRATIVE : The patient was in the ICU and placed in the supine position. The right chest was prepped and draped in sterile fashion. The skin overlying the 8th intercostal space in anterior axillary line infiltrated with one percent Xylocaine. 3 cm incision was made here and a hemostat pushed posteriorly across the 8th rib into the chest. Yankauer suction device was placed in the chest and 700 cc of straw colored fluid removed. Through the incision in the chest wall, a 36 Fr chest tube placed and secured with a silk suture. This was connected to the chest tube bottle. Post procedure chest x-ray showed good placement of the chest tube with resolution of the effusion and no pneumothorax Type of Anesthesia: Local (1 % xYLOCAINE ) Anesthesia Comment: PLUS MAC ANESTHESIA Findings: RIGHT PLEURAL EFFUSION , 700 CC OF STRAW COLORED FLUID Specimen/Pathology: CULTURES OF RIGHT PLEURAL EFFUSION Type of Fluids Used:: Lactated Ringers EBL: MINIMAL Drains/Tubes Comment: 36 FR CHEST TUBE PLACES Cultures: OF PLEURAL FLUID Complications:: NONE Needle/Sponge Count:: CORRECT Disposition/Condition: Pt. tolerated procedure without difficulty.
[2022-09-25 05:19] LABS: BASOPHILS # (AUTO) 0.1 X10^3/uL (0.0-0.1); EOSINOPHILS # (AUTO) 0.2 x10^3/uL (0.0-0.2); EOSINOPHILS % (AUTO) 2.1 % (0.9-2.9); HEMATOCRIT 28.2 % (42.0-54.0); HEMOGLOBIN 9.8 g/dL (13.5-18.0); LYMPHOCYTES # (AUTO) 1.7 X10^3/uL (1.3-2.9); LYMPHOCYTES % (AUTO) 17.5 % (21.0-51.0); MEAN CORPUSCULAR HEMOGLOBIN 31.4 pg (27.0-34.0); MEAN CORPUSCULAR HGB CONC 34.7 g/dL (33.0-35.0); MEAN CORPUSCULAR VOLUME 90.4 fL (80.0-100.0); MEAN PLATELET VOLUME 7.3 fL (7.4-11.0); MONOCYTES # (AUTO) 1.4 x10^3/uL (0.3-0.8); MONOCYTES % (AUTO) 14.6 % (0.0-13.0); NEUTROPHILS # (AUTO) 6.2 x10^3/uL (2.2-4.8); NEUTROPHILS % (AUTO) 64.8 % (42.0-75.0); RED BLOOD COUNT 3.12 X10^6/uL (4.7-6.0); WHITE BLOOD COUNT 9.6 X10^3/uL (3.6-10.0)
[2022-09-25 05:32] LABS: ALANINE AMINOTRANSFERASE 41 Units/L (12-78); ALBUMIN 1.9 g/dL (3.4-5.0); ALKALINE PHOSPHATASE 73 Units/L (46-116); ASPARTATE AMINO TRANSFERASE 34 Units/L (15-37); BLOOD UREA NITROGEN 16 mg/dL (7-18); CALCIUM 7.9 mg/dL (8.5-10.1); CARBON DIOXIDE 32.8 mmol/L (21-32); CHLORIDE 101 mmol/L (98-107); COR CA(FOR HYPOALB) 9.6 mg/dL (8.5-10.1); CREATININE 0.85 mg/dL (0.70-1.30); SODIUM 137 mmol/L (136-145); TOTAL PROTEIN 5.9 g/dL (6.4-8.2); eGFR NON BLACK RACES > 60 (>60)
[2022-09-25] MEDS: DUONEB 0.5 MG/3 MG (3 mL) NEB SCH ×2 (07:56→08:34)
[2022-09-25] MEDS: PULMICORT NEB TX 0.5 MG NEB SCH ×2 (07:56→08:34)
[2022-09-25] MEDS: LOVENOX INJ 40 MG SYR SC SCH (08:36)
[2022-09-25] MEDS: PROTONIX INJ 40 MG VIAL IVP SCH (08:37)
[2022-09-25] MEDS: LEVAQUIN TAB 500 MG PO SCH (08:37)
[2022-09-25 12:05] VITALS: BP 107/66
--- NOTE | 2022-09-25 14:29 | W.DIS.FURT ---
Summary of Discharge Discharge Summary of Date Date of Exam: 09/25/22 Admission Date Date of Admission: 09/12/22 Admission Diagnosis Patient Problems (Updated 09/25/22 @ 14:27 by Geoff Chavarria) Pneumoperitoneum (Acute) K66.8 Acute dehydration (Acute) E86.0 Acute hyponatremia (Acute) E87.1 Pleural effusion on right (Acute) J90 Acute renal failure (ARF) (Acute) N17.9 Sepsis (Acute) A41.9 Hospital Course: 57 year old male who presented on September 12 with complaints of three-day history of acute abdominal pain. On arrival he was markedly dehydrated. Past medical history significant for perforated duodenal ulcer treated in the past with surgery. On 09/13/2022 he underwent antrectomy with retrocolic Billroth II reconstruction after IV hydration and IV antibiotics . At the time of surgery he had an old Ayan patch. Post-procedure he has done very well. Extubated well. He was treated with IV antibiotics , IV Zosyn, and then transitioned to po Lavaquin . At the time of the initial consult a left subclavian triple lumen catheter was placed. He devleoped a significant right sided pleural effusion and underwent placement of a right chest tube on September 21 All cultures of pleural fluid were negative Chest tube has been removed and chest x-ray looks great with no fluid and no pneumothorax. He had t2o [place] drains in the right upper quadrant which have been discontinued. The incision looks good. [place] remain in place. He will be discharged to the [facility] at the longterm he is housed at and I will see him in my office in one week. Vital Signs: Vital Signs (72 hours) 09/24/22 20:28 09/22/22 19:24 09/24/22 10:01 Temperature 98.4 F 98.7 F 98.6 F Pulse Rate 108 H 110 H 97 H Respiratory Rate 13 12 10 L Blood Pressure 117/67 113/64 117/64 O2 Sat by Pulse Oximetry 98 97 96 Oxygen Delivery Method Oxygen Flow Rate FIO2% 09/22/22 15:00 09/22/22 16:00 09/22/22 17:00 Temperature 98.7 F Pulse Rate 104 H 103 H 109 H Respiratory Rate 13 13 14 Blood Pressure 116/68 120/72 116/66 O2 Sat by Pulse Oximetry 98 97 96 Oxygen Delivery Method Nasal Cannula Nasal Cannula Nasal Cannula Oxygen Flow Rate 2 2 2 FIO2% 09/22/22 18:00 09/22/22 19:00 09/22/22 19:00 Temperature Pulse Rate 110 H 104 H Respiratory Rate 12 20 Blood Pressure 113/64 113/63 O2 Sat by Pulse Oximetry 97 100 Oxygen Delivery Method Nasal Cannula Nasal Cannula Nasal Cannula Oxygen Flow Rate 2 2 2 FIO2% 09/22/22 20:00 09/22/22 20:19 09/22/22 21:00 Temperature 98.7 F Pulse Rate 110 H 110 H Respiratory Rate 20 16 16 Blood Pressure 109/60 113/69 O2 Sat by Pulse Oximetry 96 100 Oxygen Delivery Method Nasal Cannula Nasal Cannula Oxygen Flow Rate 2 2 FIO2% 09/22/22 20:49 09/22/22 20:50 09/22/22 20:50 Temperature Pulse Rate 101 H Respiratory Rate 16 Blood Pressure O2 Sat by Pulse Oximetry 96 Oxygen Delivery Method Nasal Cannula Oxygen Flow Rate 2 FIO2% 28 09/22/22 22:00 09/22/22 23:00 09/23/22 00:00 Temperature 98.2 F Pulse Rate 115 H 109 H 116 H Respiratory Rate 12 13 22 Blood Pressure 117/70 106/65 115/70 O2 Sat by Pulse Oximetry 96 95 95 Oxygen Delivery Method Nasal Cannula Nasal Cannula Nasal Cannula Oxygen Flow Rate 2 2 2 FIO2% 09/23/22 01:00 09/23/22 02:00 09/23/22 03:00 Temperature Pulse Rate 106 H 105 H 105 H Respiratory Rate 20 14 20 Blood Pressure 117/63 115/73 125/66 O2 Sat by Pulse Oximetry 94 L 94 L 94 L Oxygen Delivery Method Nasal Cannula Nasal Cannula Nasal Cannula Oxygen Flow Rate 2 2 2 FIO2% 09/23/22 04:00 09/23/22 05:00 09/23/22 06:00 Temperature 98.5 F Pulse Rate 96 H 100 H 97 H Respiratory Rate 14 14 12 Blood Pressure 108/65 125/63 102/62 O2 Sat by Pulse Oximetry 96 96 96 Oxygen Delivery Method Nasal Cannula Nasal Cannula Nasal Cannula Oxygen Flow Rate 2 2 2 FIO2% 09/22/22 19:45 09/22/22 20:00 09/22/22 20:00 Temperature Pulse Rate 108 H Respiratory Rate 15 Blood Pressure 115/65 109/60 O2 Sat by Pulse Oximetry 97 Oxygen Delivery Method Oxygen Flow Rate FIO2% 09/22/22 20:15 09/22/22 20:15 09/22/22 20:30 Temperature Pulse Rate 107 H Respiratory Rate 14 Blood Pressure 113/61 127/63 O2 Sat by Pulse Oximetry 97 Oxygen Delivery Method Oxygen Flow Rate FIO2% 09/22/22 20:30 09/22/22 20:55 09/22/22 20:55 Temperature Pulse Rate 106 H 134 H Respiratory Rate 22 21 Blood Pressure 122/75 O2 Sat by Pulse Oximetry 98 93 L Oxygen Delivery Method Oxygen Flow Rate FIO2% 09/22/22 21:00 09/22/22 21:00 09/22/22 21:15 Temperature Pulse Rate 123 H Respiratory Rate 15 Blood Pressure 113/69 112/67 O2 Sat by Pulse Oximetry 93 L Oxygen Delivery Method Oxygen Flow Rate FIO2% 09/22/22 21:15 09/22/22 21:30 09/22/22 21:30 Temperature Pulse Rate 122 H 115 H Respiratory Rate 17 10 L Blood Pressure 115/68 O2 Sat by Pulse Oximetry 97 93 L Oxygen Delivery Method Oxygen Flow Rate FIO2% 09/22/22 21:45 09/22/22 21:45 09/22/22 22:00 Temperature Pulse Rate 114 H Respiratory Rate 8 L Blood Pressure 118/68 117/70 O2 Sat by Pulse Oximetry 94 L Oxygen Delivery Method Oxygen Flow Rate FIO2% 09/22/22 22:00 09/22/22 22:15 09/22/22 22:15 Temperature Pulse Rate 114 H 112 H Respiratory Rate 10 L 7 L Blood Pressure 120/67 O2 Sat by Pulse Oximetry 93 L 93 L Oxygen Delivery Method Oxygen Flow Rate FIO2% 09/22/22 22:30 09/22/22 22:30 09/22/22 22:45 Temperature Pulse Rate 109 H 108 H Respiratory Rate 6 L 12 Blood Pressure 115/71 O2 Sat by Pulse Oximetry 94 L 93 L Oxygen Delivery Method Oxygen Flow Rate FIO2% 09/22/22 22:45 09/22/22 23:00 09/22/22 23:00 Temperature Pulse Rate 106 H Respiratory Rate 8 L Blood Pressure 116/67 144/76 O2 Sat by Pulse Oximetry 90 L Oxygen Delivery Method Oxygen Flow Rate FIO2% 09/22/22 23:15 09/22/22 23:15 09/22/22 23:32 Temperature Pulse Rate 109 H 110 H Respiratory Rate 14 10 L Blood Pressure 105/65 O2 Sat by Pulse Oximetry 93 L 94 L Oxygen Delivery Method Oxygen Flow Rate FIO2% 09/22/22 23:32 09/23/22 00:00 09/23/22 00:00 Temperature Pulse Rate 106 H Respiratory Rate 13 Blood Pressure 107/69 115/70 O2 Sat by Pulse Oximetry 95 Oxygen Delivery Method Oxygen Flow Rate FIO2% 09/23/22 01:00 09/23/22 01:00 09/23/22 02:00 Temperature Pulse Rate 106 H Respiratory Rate 17 Blood Pressure 117/63 115/73 O2 Sat by Pulse Oximetry 93 L Oxygen Delivery Method Oxygen Flow Rate FIO2% 09/23/22 02:00 09/23/22 03:00 09/23/22 03:00 Temperature Pulse Rate 106 H 100 H Respiratory Rate 9 L 11 L Blood Pressure 125/66 O2 Sat by Pulse Oximetry 94 L 94 L Oxygen Delivery Method Oxygen Flow Rate FIO2% 09/23/22 04:00 09/23/22 04:00 09/23/22 05:00 Temperature Pulse Rate 94 H Respiratory Rate 9 L Blood Pressure 108/65 125/65 O2 Sat by Pulse Oximetry 96 Oxygen Delivery Method Oxygen Flow Rate FIO2% 09/23/22 05:00 09/23/22 06:00 09/23/22 06:00 Temperature Pulse Rate 109 H 99 H Respiratory Rate 16 9 L Blood Pressure 102/62 O2 Sat by Pulse Oximetry 88 L 96 Oxygen Delivery Method Oxygen Flow Rate FIO2% 09/23/22 07:00 09/23/22 07:00 09/23/22 07:59 Temperature 97.9 F Pulse Rate 103 H 103 H Respiratory Rate 21 10 L Blood Pressure 109/63 O2 Sat by Pulse Oximetry 94 L 94 L Oxygen Delivery Method Oxygen Flow Rate FIO2% 09/23/22 08:00 09/23/22 08:01 09/23/22 08:23 Temperature Pulse Rate 102 H Respiratory Rate 11 L Blood Pressure 112/67 O2 Sat by Pulse Oximetry 94 L Oxygen Delivery Method Room Air Oxygen Flow Rate 2 FIO2% 28 09/23/22 08:23 09/23/22 07:00 09/23/22 09:00 Temperature Pulse Rate Respiratory Rate Blood Pressure 116/70 O2 Sat by Pulse Oximetry 97 Oxygen Delivery Method Nasal Cannula Oxygen Flow Rate 2 FIO2% 09/23/22 09:00 09/23/22 10:00 09/23/22 10:00 Temperature Pulse Rate 106 H 114 H Respiratory Rate 15 22 Blood Pressure 129/62 O2 Sat by Pulse Oximetry 96 97 Oxygen Delivery Method Oxygen Flow Rate FIO2% 09/23/22 11:00 09/23/22 11:00 09/23/22 12:00 Temperature 98.6 F Pulse Rate 102 H Respiratory Rate 15 Blood Pressure 110/62 112/64 O2 Sat by Pulse Oximetry 96 Oxygen Delivery Method Oxygen Flow Rate FIO2% 09/23/22 12:00 09/23/22 13:00 09/23/22 13:00 Temperature 98.6 F Pulse Rate 97 H 103 H Respiratory Rate 10 L 10 L Blood Pressure 117/64 O2 Sat by Pulse Oximetry 96 97 Oxygen Delivery Method Oxygen Flow Rate FIO2% 09/23/22 14:00 09/23/22 14:00 09/23/22 15:00 Temperature Pulse Rate 106 H Respiratory Rate 12 Blood Pressure 116/67 113/64 O2 Sat by Pulse Oximetry 96 Oxygen Delivery Method Oxygen Flow Rate FIO2% 09/23/22 15:00 09/23/22 16:00 09/23/22 16:00 Temperature 98.3 F Pulse Rate 100 H 101 H Respiratory Rate 11 L 12 Blood Pressure 110/62 O2 Sat by Pulse Oximetry 96 96 Oxygen Delivery Method Oxygen Flow Rate FIO2% 09/23/22 17:00 09/23/22 17:00 09/23/22 18:00 Temperature Pulse Rate 100 H Respiratory Rate 10 L Blood Pressure 109/62 119/71 O2 Sat by Pulse Oximetry 97 Oxygen Delivery Method Oxygen Flow Rate FIO2% 09/23/22 18:00 09/23/22 19:00 09/23/22 19:00 Temperature Pulse Rate 107 H Respiratory Rate 27 H Blood Pressure 111/69 O2 Sat by Pulse Oximetry 98 Oxygen Delivery Method Room Air Oxygen Flow Rate FIO2% 09/23/22 19:00 09/23/22 19:00 09/23/22 20:00 Temperature 98.1 F Pulse Rate 102 H Respiratory Rate 14 Blood Pressure 111/69 109/66 O2 Sat by Pulse Oximetry 97 Oxygen Delivery Method Oxygen Flow Rate FIO2% 09/23/22 20:00 09/23/22 21:00 09/23/22 21:00 Temperature Pulse Rate 101 H 103 H Respiratory Rate 13 13 Blood Pressure 128/66 O2 Sat by Pulse Oximetry 96 96 Oxygen Delivery Method Oxygen Flow Rate FIO2% 09/23/22 21:10 09/23/22 21:40 09/23/22 21:00 Temperature Pulse Rate Respiratory Rate 14 13 Blood Pressure 128/66 O2 Sat by Pulse Oximetry Oxygen Delivery Method Oxygen Flow Rate FIO2% 09/23/22 22:00 09/23/22 22:00 09/23/22 23:00 Temperature Pulse Rate 103 H Respiratory Rate 13 Blood Pressure 116/58 112/68 O2 Sat by Pulse Oximetry 93 L Oxygen Delivery Method Oxygen Flow Rate FIO2% 09/23/22 23:00 09/24/22 00:00 09/24/22 00:00 Temperature 98.4 F Pulse Rate 102 H 98 H Respiratory Rate 13 18 Blood Pressure 110/61 O2 Sat by Pulse Oximetry 95 94 L Oxygen Delivery Method Oxygen Flow Rate FIO2% 09/24/22 01:00 09/24/22 01:00 09/24/22 02:00 Temperature Pulse Rate 97 H Respiratory Rate 16 Blood Pressure 117/65 107/64 O2 Sat by Pulse Oximetry 95 Oxygen Delivery Method Oxygen Flow Rate FIO2% 09/24/22 02:00 09/24/22 03:00 09/24/22 03:00 Temperature Pulse Rate 93 H 92 H Respiratory Rate 25 H 37 H Blood Pressure 112/65 O2 Sat by Pulse Oximetry 97 96 Oxygen Delivery Method Oxygen Flow Rate FIO2% 09/24/22 04:00 09/24/22 04:00 09/24/22 05:00 Temperature 98.3 F Pulse Rate 94 H 101 H Respiratory Rate 13 71 H Blood Pressure 131/72 O2 Sat by Pulse Oximetry 88 L 85 L Oxygen Delivery Method Oxygen Flow Rate FIO2% 09/24/22 05:04 09/24/22 05:04 09/23/22 21:17 Temperature Pulse Rate 96 H Respiratory Rate 51 H Blood Pressure 125/69 O2 Sat by Pulse Oximetry 91 L Oxygen Delivery Method Room Air Oxygen Flow Rate FIO2% 09/23/22 21:17 09/24/22 06:00 09/24/22 06:00 Temperature Pulse Rate 100 H 91 H Respiratory Rate 50 H Blood Pressure 114/69 O2 Sat by Pulse Oximetry 95 96 Oxygen Delivery Method Oxygen Flow Rate FIO2% 09/24/22 07:00 09/24/22 07:00 09/24/22 08:57 Temperature Pulse Rate 100 H Respiratory Rate 22 Blood Pressure 137/69 O2 Sat by Pulse Oximetry 98 Oxygen Delivery Method Nasal Cannula Room Air Oxygen Flow Rate 2 FIO2% 04/09/23 08:00 09/24/22 09:00 09/24/22 10:00 Temperature Pulse Rate 97 H 96 H 96 H Respiratory Rate 20 20 20 Blood Pressure 115/63 111/62 108/60 O2 Sat by Pulse Oximetry 97 100 97 Oxygen Delivery Method Oxygen Flow Rate FIO2% 09/24/22 11:00 09/24/22 12:00 09/24/22 13:00 Temperature 98.7 F Pulse Rate 104 H 98 H 97 H Respiratory Rate 22 20 20 Blood Pressure 130/60 105/65 107/67 O2 Sat by Pulse Oximetry 93 L 97 97 Oxygen Delivery Method Oxygen Flow Rate FIO2% 09/24/22 14:00 09/24/22 15:00 09/24/22 16:00 Temperature Pulse Rate 99 H 93 H 98 H Respiratory Rate 20 20 13 Blood Pressure 110/63 114/66 118/70 O2 Sat by Pulse Oximetry 97 96 98 Oxygen Delivery Method Oxygen Flow Rate FIO2% 09/24/22 17:00 09/24/22 18:00 09/24/22 19:00 Temperature 98.2 F Pulse Rate 101 H 118 H Respiratory Rate 20 14 Blood Pressure 118/69 130/71 O2 Sat by Pulse Oximetry 96 97 Oxygen Delivery Method Room Air Oxygen Flow Rate FIO2% 09/24/22 19:00 09/24/22 19:00 09/24/22 20:00 Temperature 98.4 F Pulse Rate 109 H Respiratory Rate 13 Blood Pressure 107/65 117/67 O2 Sat by Pulse Oximetry 96 Oxygen Delivery Method Oxygen Flow Rate FIO2% 09/24/22 20:00 09/24/22 20:03 09/24/22 20:03 Temperature Pulse Rate 108 H 113 H Respiratory Rate 13 Blood Pressure O2 Sat by Pulse Oximetry 98 98 Oxygen Delivery Method Room Air Oxygen Flow Rate FIO2% 09/24/22 20:39 09/24/22 21:00 09/24/22 21:00 Temperature Pulse Rate 109 H Respiratory Rate 13 9 L Blood Pressure 120/62 O2 Sat by Pulse Oximetry 94 L Oxygen Delivery Method Oxygen Flow Rate FIO2% 09/24/22 21:09 09/24/22 22:00 09/24/22 22:00 Temperature Pulse Rate 114 H Respiratory Rate 12 14 Blood Pressure 105/62 O2 Sat by Pulse Oximetry 96 Oxygen Delivery Method Oxygen Flow Rate FIO2% 09/24/22 23:00 09/24/22 23:00 09/25/22 00:00 Temperature 98.4 F Pulse Rate 99 H Respiratory Rate 12 Blood Pressure 121/63 115/65 O2 Sat by Pulse Oximetry 94 L Oxygen Delivery Method Oxygen Flow Rate FIO2% 09/25/22 00:00 09/25/22 01:00 09/25/22 01:00 Temperature Pulse Rate 93 H 96 H Respiratory Rate 11 L 14 Blood Pressure 109/65 O2 Sat by Pulse Oximetry 95 95 Oxygen Delivery Method Oxygen Flow Rate FIO2% 09/25/22 02:00 09/25/22 02:00 09/25/22 03:00 Temperature Pulse Rate 92 H Respiratory Rate 12 Blood Pressure 113/63 144/67 O2 Sat by Pulse Oximetry 96 Oxygen Delivery Method Oxygen Flow Rate FIO2% 09/25/22 03:00 09/25/22 04:00 09/25/22 04:00 Temperature 98.4 F Pulse Rate 91 H 89 Respiratory Rate 17 11 L Blood Pressure 106/63 O2 Sat by Pulse Oximetry 92 L 96 Oxygen Delivery Method Oxygen Flow Rate FIO2% 09/25/22 05:00 09/25/22 05:00 09/25/22 06:00 Temperature Pulse Rate 102 H Respiratory Rate 10 L Blood Pressure 127/66 100/66 O2 Sat by Pulse Oximetry 96 Oxygen Delivery Method Oxygen Flow Rate FIO2% 09/25/22 06:00 09/25/22 07:00 09/25/22 07:56 Temperature Pulse Rate 86 Respiratory Rate 9 L Blood Pressure O2 Sat by Pulse Oximetry 97 Oxygen Delivery Method Room Air Room Air Oxygen Flow Rate FIO2% 09/25/22 07:56 09/25/22 07:00 09/25/22 07:00 Temperature Pulse Rate 92 H Respiratory Rate 15 Blood Pressure 121/61 O2 Sat by Pulse Oximetry 97 95 Oxygen Delivery Method Oxygen Flow Rate FIO2% 09/25/22 08:00 09/25/22 08:00 09/25/22 09:00 Temperature 98 F Pulse Rate 101 H Respiratory Rate 14 Blood Pressure 129/80 108/67 O2 Sat by Pulse Oximetry 100 Oxygen Delivery Method Oxygen Flow Rate FIO2% 09/25/22 09:00 09/25/22 10:00 09/25/22 10:00 Temperature Pulse Rate 109 H 105 H Respiratory Rate 11 L 10 L Blood Pressure 110/67 O2 Sat by Pulse Oximetry 96 97 Oxygen Delivery Method Oxygen Flow Rate FIO2% 09/25/22 11:00 09/25/22 11:00 09/25/22 12:00 Temperature Pulse Rate 104 H Respiratory Rate 16 Blood Pressure 110/67 107/66 O2 Sat by Pulse Oximetry 98 Oxygen Delivery Method Oxygen Flow Rate FIO2% 09/25/22 12:00 Temperature Pulse Rate 103 H Respiratory Rate 16 Blood Pressure O2 Sat by Pulse Oximetry 96 Oxygen Delivery Method Oxygen Flow Rate FIO2% Labs: Laboratory Last Values WBC 9.6 X10^3/uL (3.6-10.0) 09/25/22 04:00 RBC 3.12 X10^6/uL (4.7-6.0) L 09/25/22 04:00 Hgb 9.8 g/dL (13.5-18.0) L 09/25/22 04:00 Hct 28.2 % (42.0-54.0) L 09/25/22 04:00 MCV 90.4 fL (80.0-100.0) 09/25/22 04:00 MCH 31.4 pg (27.0-34.0) 09/25/22 04:00 MCHC 34.7 g/dL (33.0-35.0) 09/25/22 04:00 RDW 14.0 % (11.6-16.5) 09/25/22 04:00 Plt Count 737 X10^3/uL (150.0-450.0) H 09/25/22 04:00 Plt Count Comment Adequate (ADEQUATE) 09/19/22 04:22 MPV 7.3 fL (7.4-11.0) L 09/25/22 04:00 Neut % (Auto) 64.8 % (42.0-75.0) 09/25/22 04:00 Lymph % (Auto) 17.5 % (21.0-51.0) L 09/25/22 04:00 [place] % (Auto) 14.6 % (0.0-13.0) H 09/25/22 04:00 Eos % (Auto) 2.1 % (0.9-2.9) 09/25/22 04:00 Baso % (Auto) 1.0 % (0.2-1.0) 09/25/22 04:00 Neut # (Auto) 6.2 x10^3/uL (2.2-4.8) H 09/25/22 04:00 Lymph # (Auto) 1.7 X10^3/uL (1.3-2.9) 09/25/22 04:00 [place] # (Auto) 1.4 x10^3/uL (0.3-0.8) H 09/25/22 04:00 Eos # (Auto) 0.2 x10^3/uL (0.0-0.2) 09/25/22 04:00 Baso # (Auto) 0.1 X10^3/uL (0.0-0.1) 09/25/22 04:00 Absolute Nucleated RBC 0.1 /100WBC 09/25/22 04:00 Total Counted 100 09/19/22 04:22 Neutrophils % (Manual) 74 % (39-76) 09/19/22 04:22 Band Neutrophils % 3 % (0-10) 09/19/22 04:22 Lymphocytes % (Manual) 9 % (13-43) L 09/19/22 04:22 Monocytes % (Manual) 10 % (4-9) H 09/19/22 04:22 Eosinophils % (Manual) 2 % (0-6) 09/19/22 04:22 Metamyelocytes % 2 09/19/22 04:22 Myelocytes % 1 09/13/22 04:16 Plt Morphology Comment Normal (NORMAL) 09/19/22 04:22 RBC Morphology Normal (NORMAL) 09/19/22 04:22 [place] Cells Present 09/14/22 04:35 Sodium 137 mmol/L (136-145) 09/25/22 04:00 Corrected Sodium TNP 09/25/22 04:00 Potassium 4.0 mmol/L (3.5-5.1) 09/25/22 04:00 Chloride 101 mmol/L (98-107) 09/25/22 04:00 Carbon Dioxide 32.8 mmol/L (21-32) H 09/25/22 04:00 BUN 16 mg/dL (7-18) 09/25/22 04:00 Creatinine 0.85 mg/dL (0.70-1.30) 09/25/22 04:00 Est GFR (MDRD) Af Amer > 60 (>60) 09/25/22 04:00 Est GFR (MDRD) Non-Af > 60 (>60) 09/25/22 04:00 Glucose 97 mg/dL (65-99) 09/25/22 04:00 Lactic Acid 2.7 mmol/L (0.4-2.0) H 09/14/22 04:35 Calcium 7.9 mg/dL (8.5-10.1) L 09/25/22 04:00 Corrected Calcium 9.6 mg/dL (8.5-10.1) 09/25/22 04:00 Magnesium 1.8 mg/dL (2.0-2.9) L 09/23/22 04:23 Total Bilirubin 0.20 mg/dL (0.2-1.0) 09/25/22 04:00 AST 34 Units/L (15-37) 09/25/22 04:00 ALT 41 Units/L (12-78) 09/25/22 04:00 Alkaline Phosphatase 73 Units/L (46-116) 09/25/22 04:00 Total Protein 5.9 g/dL (6.4-8.2) L 09/25/22 04:00 Albumin 1.9 g/dL (3.4-5.0) L 09/25/22 04:00 Globulin 4.0 g/dL (2.5-4.5) 09/25/22 04:00 Albumin/Globulin Ratio 0.5 Ratio (1.1-2.1) L 09/25/22 04:00 Lipase 95 Units/L (73-393) 09/12/22 18:20 Specimen Type Clean catch urine 09/17/22 20:55 Urine Color Dark yellow (YELLOW) 09/17/22 20:55 Urine Appearance Clear (CLEAR) 09/17/22 20:55 Urine pH 7.0 (5.0 - 8.0) 09/17/22 20:55 Ur Specific [place] 1.010 (1.000-1.030) 09/17/22 20:55 Urine Protein 2+ (NEGATIVE) 09/17/22 20:55 Urine Glucose (UA) Negative (NEGATIVE) 09/17/22 20:55 Urine Ketones 4+ (NEGATIVE) 09/17/22 20:55 Urine Blood 4+ (NEGATIVE) 09/17/22 20:55 Urine Nitrite Negative (NEGATIVE) 09/17/22 20:55 Urine Bilirubin Negative (NEGATIVE) 09/17/22 20:55 Urine Urobilinogen Normal (NORMAL) 09/17/22 20:55 Ur Leukocyte Esterase Negative (NEGATIVE) 09/17/22 20:55 Urine RBC 5-10 /HPF (0-3) A 09/17/22 20:55 Urine WBC 0-2 /HPF (0-5) 09/17/22 20:55 Ur Squamous Epith Cells Rare /HPF (NEGATIVE) 09/17/22 20:55 Urine Bacteria Negative /HPF (NEGATIVE) 09/17/22 20:55 Urine Mucus Few /HPF (NEGATIVE) 09/17/22 20:55 Urine Sperm Few /HPF (NEGATIVE) 09/12/22 21:43 Ur Culture Indicated? No/not indicated 09/17/22 20:55 Urine Opiates Screen Negative (NEG=<300) 09/12/22 21:43 Urine Methadone Screen Negative (NEG=<300) 09/12/22 21:43 Ur Barbiturates Screen Negative (NEG=<200) 09/12/22 21:43 Ur Phencyclidine Scrn Negative (NEG=<25) 09/12/22 21:43 Ur Amphetamines Screen Positive (NEG=<1000) 09/12/22 21:43 U Benzodiazepines Scrn Negative (NEG=<200) 09/12/22 21:43 Urine Cocaine Screen Negative (NEG=<300) 09/12/22 21:43 U Marijuana (THC) Screen Negative (NEG=<50) 09/12/22 21:43 Resp Viral Panel (PCR) See scanned report 09/18/22 08:42 Tissue Pathology See comment. 09/13/22 16:17 Blood Type O POSITIVE 09/13/22 09:25 Blood Type O POSITIVE 09/13/22 09:25 Antibody Screen Negative 09/13/22 09:25 Reason For Visit: PERFORATED BOWEL, POSSIBLY DUODENAL ULCER Discharge Date Discharge Date: 09/25/22 Discharge Diagnosis All Active Problems (Updated 09/25/22 @ 14:27 by Geoff Chavarria) Perforated duodenal ulcer (Acute) Pneumoperitoneum (Acute) Acute dehydration (Acute) Acute hyponatremia (Acute) Pleural effusion on right (Acute) Acute renal failure (ARF) (Acute) Sepsis (Acute) Plan of Treatment: Continue with present treatment and follow up plan. Pt is to keep follow up appointment as instructed and take medications as ordered. Discharge Medications Discharge Medications: No Known Allergies Allergy (Verified 09/12/22 18:12) New Prescriptions levofloxacin 500 mg tablet 500 mg PO Q24H #7 tabs 09/25/22 [Rx] oxycodone-acetaminophen 5 mg-325 mg tablet (Percocet) 1 tab PO Q6H PRN #20 tabs 09/25/22 [Rx] Discharge Disposition Assessment: see above Discharge Plan Discharge Plan Hospital Course: 57 year old male who presented on September 12 with complaints of three-day histo ry of acute abdominal pain. On arrival he was markedly dehydrated. Past medical history significant for perforated duodenal ulcer treated in the past with surgery. On 09/13/2022 he underwent antrectomy with retrocolic Billroth II reconstruction after IV hydration and IV antibiotics . At the time of surgery he had an old Ayan patch. Post-procedure he has done very well. Extubated well. He was treated with IV antibiotics , IV Zosyn, and then transitioned to po Lavaquin . At the time of the initial consult a left subclavian triple lumen catheter was placed. He devleoped a significant right sided pleural effusion and underwent placement of a right chest tube on September 21 All cultures of pleural fluid were negative Chest tube has been removed and chest x-ray looks great with no fluid and no pneumothorax. He had t2o [place] drains in the right upper quadrant which have been discontinued. The incision looks good. [place] remain in place. He will be discharged to the [facility] at the longterm he is housed at and I will see him in my office in one week. Patient Disposition: D/C with law/court enforcement Condition: Stable Health Concerns: Post Hospitalization: new medications and changes needed to prevent readmission or further decline. Pt educated and given instructions on all concerns. Care Plan Goals: Problem: Alteration in Elimination Goal: Demonstrate appropriate elimination pattern Instructions: Follow provided instructions. Follow up with primary physician as directed. Contact primary care physician or report to the closest Emergency Room if condition worsens. Plan of Treatment: Continue with present treatment and follow up plan. Pt is to keep follow up appointment as instructed and take medications as ordered. Assessment: see above Prescriptions: New levofloxacin 500 mg Tablet 500 mg PO Q24H Qty: 7 0RF Rx Instructions: Take one tab daily for 7 days oxycodone-acetaminophen [Percocet] 5-325 mg Tablet 1 tab PO Q6H MDD 4 PRNQty: 20 0RF Rx Instructions: Tke one tablet every six hours as needed for pain. Follow ups/Referrals Follow ups/Referrals: Geoff Chavarria [STAFF PHYSICIAN] - 10/03/22 1:30 pm Instructions Instructions: Shortness of Breath, Adult, [id number], Exploratory Laparotomy, Adult, Care After, Wound Care, Adult, How to Prevent Constipation After Surgery Activity Restrictions/Additional Instructions: No lifting greater than 10 pounds for 6 weeks. Increase daily activity as tolerated with frequent ambulation. Stand Alone Forms: Excuse From Work or School
== END 2022-09-25 13:50 | DRG 853 ==
LOC: ER 17:56 → ICU 21:33
PROVIDERS: ADMIT Surgery; ATTEND Surgery
DX: J91.8 Pleural effusion in other conditions classified elsewhere; K26.1 Acute duodenal ulcer with perforation; E87.1 Hypo-osmolality and hyponatremia; R10.84 Generalized abdominal pain; Z20.822 Contact with and (suspected) exposure to COVID-19; K21.9 Gastro-esophageal reflux disease without esophagitis; E78.2 Mixed hyperlipidemia; A41.89 Other specified sepsis; E86.0 Dehydration; K66.8 Other specified disorders of peritoneum; N17.8 Other acute kidney failure